=== PATIENT | female | born 1950 | race Two or more races ===

== ENCOUNTER 2024-04-26 15:02 | Emergency (ER) | payer OTHER ==
[~2024-04-26] VITALS: Ht 165.1 cm; Wt 79.8 kg
--- NOTE | 2024-04-26 16:21 | ED.PDOC ---
History of Present Illness HPI Comments 73Y F with PMHx cholecystectomy and cancer presents to ED for chief complaint jaundice x7days with mild abd pain. Pt denies fever, n/v/d. Pt states she had lap kristin done in August or September of 2023 and was then told she had cancer. Pt was then referred to [facility] for f/u procedure to "clean the margins" in 2023. Pt has not received further treatment. Pt had f/u appt with [facility] on but provider did not notice the jaundice. For the last 10 days, pt has been experiencing nausea, brown urine, light jose angel colored feces, and excessive belching. No known allergies. 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 Family History Family History: Unknown Social History Smoker: Unknown Alcohol: Unknown Drugs: Unknown Lives In: Home Constitutional: denies: chills, diaphoresis, fatigue, fever, malaise, sweats, weakness, others EENTM: denies: blurred vision, double vision, ear bleeding, ear discharge, ear drainage, ear pain, ear ringing, eye pain, eye redness, hearing loss, mouth pain, mouth swelling, nasal discharge, nose bleeding, nose congestion, nose pain, photophobia, tearing, throat pain, throat swelling, voice changes, others Respiratory: denies: cough, hemoptysis, orthopnea, SOB at rest, shortness of breath, SOB with excertion, stridor, wheezing, others Cardiovascular: denies: chest pain, dizzy spells, diaphoresis, Dyspnea on exertion, edema, irregular heart beat, left arm pain, lightheadedness, palpitations, PND, syncope, others Gastrointestinal: reports: abdominal pain (mild); denies: abdomen distended, blood streaked bowels, constipated, diarrhea, dysphagia, difficulty swallowing, hematemesis, melena, nausea, poor appetite, poor fluid intake, rectal bleeding, rectal pain, vomiting, others Genitourinary: denies: abnormal vagina bleeding, burning, dyspareunia, dysuria, flank pain, frequency, hematuria, incontinence, pain, , vagina discharge, urgency, others Neurological: denies: dizziness, fainting, headache, left sided numbness, left sided weakness, numbness, paresthesia, pre-existing deficit, right sided numbness, right sided weakness, seizure, speech problems, tingling, tremors, weakness, others Musculoskeletal: denies: back pain, gout, joint pain, joint swelling, muscle pain, muscle stiffness, neck pain, others Integumetry: reports: change in color (jaundice); denies: bruises, change in hair/nails, dryness, laceration, lesions, lumps, rash, wounds, others Allergic/Immunocompromised: denies: Difficulty Healing, Frequent Infections, Hives, Itching, others Hematologic/Lymphatic: denies: anemia, blood clots, easy bleeding, easy bruising, swollen glands, others Endocrine: denies: excessive hunger, excessive sweating, excessive thirst, excessive urination, flushing, intolerance to cold, intolerance to heat, unexplained weight gain, unexplained weight loss, others Psychiatric: denies: anxiety, bipolar disorder, depression, hopeless, panic disorder, schizophrenia, sleepless, suicidal, others All Other Systems: Reviewed and Negative Physical Exam General Appearance: No Apparent Distress, Normal HEENT: Pharynx Normal, Scleral Icterus (L), Scleral Icterus (R), TMs Normal Neck: Full Range of Motion, Non-Tender, Normal, Normal Inspection Respiratory: Chest Non-Tender, Lungs Clear, No Accessory Muscle Use, No Respiratory Distress, Normal Breath Sounds Cardiovascular: No Edema, No JVD, No Murmur, No Gallop, Normal Peripheral Pulses, Regular Rate/Rhythm Breast Exam: Deferred Gastrointestinal: No Organomegaly, Non Tender, No Pulsatile Mass, Normal Bowel Sounds, Soft Genitalia: Deferred Pelvic: Deferred Rectal: Deferred Extremities: No calf tenderness, Normal capillary refill, Normal inspection, No rmal range of motion, Non-tender, No pedal edema Musculoskeletal : Apperance: Normal Neurologic: Alert, 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 Was a procedure done?: No Differential Dx Considerations may include: bile duct obstruction, pancreatic carcinoma, liver failure X-Ray, Labs, Meds, VS Vital Signs Date Time Temp Pulse Resp B/P (MAP) Pulse Ox O2 Delivery O2 Flow Rate FiO2 04/26/24 15:26 97.9 83 16 149/70 (96) 97 04/26/24 15:26 77 Lab Test 04/26/24 16:44 04/26/24 16:05 04/26/24 15:16 Range/Units Troponin I High Sensitivity 3 L 3 L </=34 ng/L White Blood Count 8.3 4.4-10.8 10^3/uL Red Blood Count 4.18 4.0-5.20 10^6/uL Hemoglobin 13.1 12.2-16.2 g/dL Hematocrit 38.4 36.0-46.0 % Mean Corpuscular Volume 92.0 80.0-100.0 fL Mean Corpuscular Hemoglobin 31.3 28.0-32.0 pg Mean Corpuscular Hemoglobin Concent 34.0 32.0-36.0 g/dL Red Cell Distribution Width 15.4 H 11.8-14.3 % Platelet Count 357 140-450 10^3/uL Mean Platelet Volume 8.9 6.9-10.8 fL Neutrophils (%) (Auto) 69.4 37.0-80.0 % Lymphocytes (%) (Auto) 20.2 10.0-50.0 % Monocytes (%) (Auto) 8.3 0.0-12.0 % Eosinophils (%) (Auto) 1.3 0.0-7.0 % Basophils (%) (Auto) 0.8 0.0-2.0 % Neutrophils # (Auto) 5.7 1.6-8.6 10 ^3/uL Lymphocytes # (Auto) 1.7 0.4-5.4 10 ^3/uL Monocytes # (Auto) 0.7 0-1.3 10 ^3/uL Eosinophils # (Auto) 0.1 0-0.8 10 ^3/uL Basophils # (Auto) 0.1 0-0.2 10 ^3/uL Nucleated Red Blood Cells 0.1 % Sodium Level 133 L 136-145 mmol/L Potassium Level 3.5 3.5-5.1 mmol/L Chloride Level 103 98-107 mmol/L Carbon Dioxide Level 23 20-31 mmol/L Anion Gap 7 5-15 Blood Urea Nitrogen 12 9-23 mg/dL Creatinine 1.07 H 0.550-1.02 mg/dL Glomerular Filtration Rate Calc 55 >90 mL/min BUN/Creatinine Ratio 11.2 10.0-20.0 Serum Glucose 317 H 74-106 mg/dL Calcium Level 9.8 8.7-10.4 mg/dL Total Bilirubin 16.4 H 0.2-1.0 mg/dL Aspartate Amino Transferase (AST) 299 H 13-40 U/L Alanine Aminotransferase (ALT) 438 H 7-40 U/L Alkaline Phosphatase 911 H 46-116 U/L Total Protein 7.5 5.7-8.2 g/dL Albumin 4.2 3.2-4.8 g/dL POC Glucose 322 H 70-106 mg/dl [place] [id number] Ph: [phone] DIAGNOSTIC IMAGING Diagnostic Imaging Report : [id number] Signed PATIENT: PEGGY SILVERACCT: [id number] UNIT: [id number] : 1950 LOC: ER ROOM / BED: / AGE / SEX: 73 / F ADM STATUS: REG ER SERVICE 1550 ORDERING PHYSICIAN: JOSE CARLOS WAHL MD PROCEDURE(s): CXR2 - CHEST TWO VIEWS ROUTINE REASON: RO PNA ORDER NUMBER(s): [id number], ACCESSION NUMBER(s): [id number] CHEST TWO VIEWS ROUTINE CLINICAL HISTORY: RO PNA COMPARISON: None TECHNIQUE: Frontal and lateral view of the chest was obtained FINDINGS: Lines and Tubes: None Lungs: No focal consolidation. Pleura: No effusion. No pneumothorax. Cardiomediastinal contours: Unremarkable Bones: No acute osseous abnormality. IMPRESSION: 1. No acute cardiopulmonary disease. ATED BY: PERCY COSTELLO MD DICTATED DATE/TIME: 04/26/241616 SIGNED BY: PERCY COSTELLO MD SIGNED DATE/TIME: 04/26/241616 CC: 73-year-old female presents here with jaundice. She states she has noticed this for the last 6-10 days. 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 She states she was doing fine until recently which noted pale colored stools and increased jaundice. Blood work has been done today which demonstrates a bilirubin of 16. Gallbladder ultrasound has been ordered as well as a CT abdomen pelvis with IV contrast. Results are still pending. Patient care has been transferred to Dr. Wade Time of 1ST Reevaluation: 16:34 Reevaluation 1ST: Unchanged Patient Education/Counseling: Diagnosis, Treatment Family Education/Counseling: No Family Present Departure 1 Departure Time of Disposition: 18:00 Impression: Primary Impression: Hyperbilirubinemia Disposition: 30 STILL A PATIENT Condition: Guarded Critical Care Note Critical Care Time?: No Stability Stability form required: No Heart Score Heart Score: Heart Score Response (Comments) Value History N/A 0 EKG N/A 0 Age N/A 0 Risk Factors N/A 0 Troponin N/A 0 Total 0 I personally scribed for JOSE CARLOS WAHL MD ([email or web address]) on 04/26/24 at 16:21. Electronically submitted by Kaylie Guevara ([employer]). I personally scribed for JOSE CARLOS WAHL MD ([email or web address]) on 04/26/24 at 16:42. Electronically submitted by Kaylie Guevara ([employer]). JOSE CARLOS WALH MD Apr 26, 2024 16:21
[2024-04-26 16:27] LABS: Basophils # (auto) 0.1 10 ^3/uL (0-0.2); Basophils % (auto) 0.8 % (0.0-2.0); Eosinophils # (auto) 0.1 10 ^3/uL (0-0.8); Eosinophils % (auto) 1.3 % (0.0-7.0); Hematocrit 38.4 % (36.0-46.0); Hemoglobin 13.1 g/dL (12.2-16.2); Lymphocytes # (auto) 1.7 10 ^3/uL (0.4-5.4); Lymphocytes % (auto) 20.2 % (10.0-50.0); Mean Corpuscular Hemoglobin 31.3 pg (28.0-32.0); Monocytes # (auto) 0.7 10 ^3/uL (0-1.3); Monocytes % (auto) 8.3 % (0.0-12.0); Neutrophils # (auto) 5.7 10 ^3/uL (1.6-8.6); Neutrophils % (auto) 69.4 % (37.0-80.0); Nucleated Red Blood Cells % 0.1 %; Platelet Count (auto) 357 10^3/uL (140-450); Red Blood Cells 4.18 10^6/uL (4.0-5.20); Red Cell Distribution Width 15.4 % (11.8-14.3); White Blood Cell 8.3 10^3/uL (4.4-10.8)
[2024-04-26 16:45] LABS: Alanine Aminotransferase 438 U/L (7-40); Albumin 4.2 g/dL (3.2-4.8); Alkaline Phosphatase 911 U/L (46-116); Anion Gap 7 (5-15); Aspartate Aminotransferase 299 U/L (13-40); Bilirubin, Total 16.4 mg/dL (0.2-1.0); Blood Urea Nitrogen 12 mg/dL (9-23); Calcium 9.8 mg/dL (8.7-10.4); Carbon Dioxide 23 mmol/L (20-31); Chloride 103 mmol/L (98-107); Glucose 317 mg/dL (74-106); Potassium 3.5 mmol/L (3.5-5.1); Sodium 133 mmol/L (136-145)
[2024-04-26 16:46] LABS: Total Protein 7.5 g/dL (5.7-8.2)
[2024-04-26 16:48] LABS: BUN/Creatinine Ratio 11.2 (10.0-20.0)
--- NOTE | 2024-04-26 16:58 | ECG ---
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
--- NOTE | 2024-04-26 16:58 | ECG ---
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
[2024-04-26] MEDS: IOHEXOL 300 MG/ML 100ML BOTTLE IJ ONE (18:00)
--- NOTE | 2024-04-26 18:34 | DVH ---
INDICATION: Pain. TECHNIQUE: Multiple real-time sonographic images of the abdomen were obtained. COMPARISON: None FINDINGS: The liver is homogenous in echogenicity. The liver measures 13.68 cm. No intrahepatic bili erlin ductal dilatation is noted. Gallbladder is been surgically removed. The common duct measures 17.15 cm and is unremarkable. No p ericholecystic fluid is noted. There appears to be a fluid collection with calcifications in the renee ins and internal debris. Questionable residual portion of the gallbladder. Patient is status post cho lecystectomy and has a history of gallbladder cancer. There are no prior studies for comparison. Nega tive ultrasound Matt's sign is elicited. The right kidney measures 7.51 cm. No hydronephrosis. The pancreas is not well visualized due to obscuration from bowel gas. IMPRESSION: 1. Gallbladder is been surgically removed. 2. In the gallbladder fossa is a collection of fluid with calcified margins and internal debris. This may represent residual portion of the gallbladder. The patient is status post cholecystectomy with a history of gallbladder cancer. Negative ultrasound Matt's sign is elicited. 3. 3 cm anechoic lesion lower pole right kidney most likely a cyst. 4. Common bile duct measures 17.15 mm. HS:Y
--- NOTE | 2024-04-26 19:35 | DVH ---
Exam: CT CT AB PEL WITH IV CON ONLY History: ELEVATED BILIRUBIN Comparison Study: None available at time of dictation. TECHNIQUE: Multidetector CT of the abdomen was performed from lung bases to pubic symphysis. Imaging was performed without IV contrast. Axial, coronal and sagittal multiplanar reformats were obtained fr om the axial data set by the technologist. Radiation Dose Information: CT Dose: CTDI volume is 13.28 mGy. Dose-length product is 700.95 mGy*cm Omnipaque 300: 100 mL FINDINGS: Lung Bases: No acute or significant lung base finding. Normal heart size. No pleural or pericardial effusion. Liver: The liver is normal in size. No focal lesions. Gallbladder and Biliary Tree: Surgical clips in the gallbladder fossa. 3.2 by 2.6 cm fluid collection in the gallbladder fossa with the same tissue density as the common bile duct is may represent a aleida iary leak into the gallbladder fossa. There is some mildly dilated intrahepatic ducts. Spleen: Unremarkable Pancreas: The pancreas is grossly normal in appearance. Adrenal Glands: Unremarkable Kidneys: 3.7 cm low-density nonenhancing cortical lesion in the right kidney consistent with a cortic al cyst. Bladder: Grossly unremarkable for degree of distention. Bowel: The stomach is grossly normal in appearance. Small bowel and colon are normal in caliber and d istribution. The appendix is not visualized; however, no secondary findings of acute appendicitis id entified. Ascites: Absent Lymphadenopathy: No mesenteric, retroperitoneal or periportal lymphadenopathy. Abdominal Wall and Mesentery: Unremarkable. Vasculature: The visualized abdominal aorta is normal in size and caliber. Evaluation of abdominal a nd pelvic vessels is limited due to lack of intravenous contrast. Pelvic Organs: Unremarkable Musculoskeletal: No aggressive focal bony lesions, acute fractures or dislocation. Degenerative disc changes at L4-5. Soft tissues: Unremarkable IMPRESSION: 1. 3.2 x 2.6 cm fluid collection in the gallbladder fossa with tissue density 10.51. Fluid in the co mmon bile duct has a tissue density 10.7 HU. Findings suggest biliary leak. There are mildly dilated intrahepatic ducts. 2. 3.423.7 cm low-density lesion in the cortex of the right kidney suggesting a simple cyst. Radiation optimization: All CT scans at this facility use at least one of these dose optimization scottie hniques: automated exposure control mA and/or kV adjustment per patient size (includes targeted exam s where dose is matched to clinical indication) or iterative reconstruction. HS:Y
[2024-04-26 19:47] LABS: Urine Bacteria FEW /hpf (None Seen); Urine Blood TRACE /uL (Negative); Urine Clarity Turbid (Clear); Urine Color Dark-Yellow (Yellow); Urine Protein, UAD TRACE (Negative); Urine Specific Gravity 1.046 (1.001-1.035); Urine Urobilinogen Normal (Negative); Urine WBC 141 /hpf (0 - 5); Urine pH 6.5 (5.0-9.0)
--- NOTE | 2024-04-26 20:33 | DVHINCON2 ---
Date of service: Apr 26, [address] Wade Reason for Consultation Medical Management History of Present Illness This is a 73-year-old female with listed past medical history who presented with complaint of sharp epigastric and right upper quadrant abdominal pain as well as yellowish discoloration of the skin for about a week with nausea prompting her to seek medical attention at [facility] Emergency room where she was diagnosed with an abdominal abscess admitted for further evaluation and management. No major events reported overnight. Patient denies complaints of fevers, chills, change in appetite, chest pain, palpitations, cough, shortness of breath, dyspnea on exertion, vomiting, diarrhea, constipation, dysuria, lightheadedness, weakness, paresthesia or other complaints. Last bowel movement was yesterday, brown, soft, no melena, no hematochezia. Past Medical History Cholecystectomy with postoperative diagnosis of gallbladder cancer status post surgical intervention to clean margins in February,. This was performed at [facility]. Family History Noncontributory Social History Patient denies current smoking, alcohol use or recreational/illicit drug use. Vital Signs Vital Signs Date Time Temp Pulse Resp B/P (MAP) Pulse Ox O2 Delivery O2 Flow Rate FiO2 04/26/24 15:26 97.9 83 16 149/70 (96) 97 Physical Exam Physical Exam: General: This is a 73-year-old female appearing stated age in no acute distress. HEENT: Pupils equal and reactive to light and accommodation. Extraocular muscles intact. Mucous membranes moist. Conjunctivae [place]. Anicteric Sclera. Lungs: Bilateral air entry; no wheezes, rhonchi, rales. Heart: Regular Rate and Rhythm. Normal S1/S2. Abdomen: Bowel Sounds Normoactive, soft, non-tender, non-distended, no cva tenderness. Extremities: No clubbing, cyanosis, edema. No calf tenderness. Pedal pulses 2+. Neurologic: Patient alert, awake and oriented x 3. Cranial nerves II through XII intact. No focal deficits on gross sensorimotor exam. Labs/Diagnostic Data Labs Test 04/26/24 16:44 04/26/24 16:05 04/26/24 15:17 04/26/24 15:16 Range/Units Troponin I High Sensitivity 3 L </=34 ng/L White Blood Count 8.3 4.4-10.8 10^3/uL Red Blood Count 4.18 4.0-5.20 10^6/uL Hemoglobin 13.1 12.2-16.2 g/dL Hematocrit 38.4 36.0-46.0 % Mean Corpuscular Volume 92.0 80.0-100.0 fL Mean Corpuscular Hemoglobin 31.3 28.0-32.0 pg Mean Corpuscular Hemoglobin Concent 34.0 32.0-36.0 g/dL Red Cell Distribution Width 15.4 H 11.8-14.3 % Platelet Count 357 140-450 10^3/uL Mean Platelet Volume 8.9 6.9-10.8 fL Neutrophils (%) (Auto) 69.4 37.0-80.0 % Lymphocytes (%) (Auto) 20.2 10.0-50.0 % Monocytes (%) (Auto) 8.3 0.0-12.0 % Eosinophils (%) (Auto) 1.3 0.0-7.0 % Basophils (%) (Auto) 0.8 0.0-2.0 % Neutrophils # (Auto) 5.7 1.6-8.6 10 ^3/uL Lymphocytes # (Auto) 1.7 0.4-5.4 10 ^3/uL Monocytes # (Auto) 0.7 0-1.3 10 ^3/uL Eosinophils # (Auto) 0.1 0-0.8 10 ^3/uL Basophils # (Auto) 0.1 0-0.2 10 ^3/uL Nucleated Red Blood Cells 0.1 % Sodium Level 133 L 136-145 mmol/L Potassium Level 3.5 3.5-5.1 mmol/L Chloride Level 103 98-107 mmol/L Carbon Dioxide Level 23 20-31 mmol/L Anion Gap 7 5-15 Blood Urea Nitrogen 12 9-23 mg/dL Creatinine 1.07 H 0.550-1.02 mg/dL Glomerular Filtration Rate Calc 55 >90 mL/min BUN/Creatinine Ratio 11.2 10.0-20.0 Serum Glucose 317 H 74-106 mg/dL Calcium Level 9.8 8.7-10.4 mg/dL Total Bilirubin 16.4 H 0.2-1.0 mg/dL Aspartate Amino Transferase (AST) 299 H 13-40 U/L Alanine Aminotransferase (ALT) 438 H 7-40 U/L Alkaline Phosphatase 911 H 46-116 U/L Total Protein 7.5 5.7-8.2 g/dL Albumin 4.2 3.2-4.8 g/dL Urine Color Dark-yellow Yellow Urine Clarity Turbid H Clear Urine pH 6.5 5.0-9.0 Urine Specific [place] 1.046 H 1.001-1.035 Urine Protein Trace H Negative Urine Ketones Negative Negative Urine Blood Trace H Negative /uL Urine Nitrite Negative Negative Urine Bilirubin 2+ H Negative Urine Urobilinogen Normal Negative mg/dL Urine Leukocyte Esterase 3+ Negative /uL Urine RBC 19 0 - 4 /hpf Urine WBC 141 0 - 5 /hpf Urine Squamous Epithelial Cells Mod <5 /hpf Urine Bacteria Few H None Seen /hpf Urine Glucose Trace Normal mg/dL POC Glucose 322 H 70-106 mg/dl Plan/Recommendation This is a 73-year-old female who presented with complaint of abdominal pain and jaundice evaluated to have acute transaminitis with possible obstructive hepatopathy with abscess in the setting of recent gallbladder cancer evaluated at [facility] Emergency room. Patient presents a very complicated scenario with diagnoses that may require immediate intervention including, but not limited to, cholecystostomy tube by Interventional Radiology, surgical intervention by the surgeon was comfortable managing a gallbladder cancer/possible hepatobiliary infiltration, etc.. If you are able to find an appropriate surgeon at this facility that is able to care for the patient and provide timely intervention then I will be happy to coordinate admitting the patient to this hospital. If you are unable to find an appropriate physician/Interventional Radiology that is immediately available to evaluate the patient without delay in care then I would recommend transferring the patient to higher level care to avoid delay in care. Preferably, [facility] would be ideal for continuity of care. Thank you for allowing me to participate in the care of your patient. Please do not hesitate to contact me with any further questions or concerns. Please reconsult as needed. All above discussed with the patient who verbalized agreement and understanding of current status and plan. All questions answered. Patient declined reaching out to any family for update. This medical document was created using an electronic medical record system with [employer] system. Although this document has been carefully reviewed, there may still be some phonetic and typographical errors. These areas are purely typographical due to imperfections of the software programs, and do not reflect any compromise in the patient's medical care Plan discussed with: JALIL PerezEK MD Apr 26, 2024 20:33
[2024-04-27 01:08] VITALS: BP 146/84; PULSE 75; RESP 16; TEMP 97.6; O2SAT 99
== END 2024-04-26 20:45 | disposition short-term general hospital (02) ==
LOC: ER 15:02
DX: R17 Unspecified jaundice (principal)
CPT/HCPCS: 36415; 71046; 74177; 76705; 80053; 81001; 82962; 84484; 85025; 93005; 99285; Q9967

== ENCOUNTER 2024-06-21 09:22 | Inpatient (IN) | payer OTHER ==
[~2024-06-21] VITALS: Ht 162.6 cm; Wt 80.1 kg
--- NOTE | 2024-06-21 09:55 | ED.PDOC ---
GI ASSESSMENT HPI Comments 73 y.o female presents to the ED via EMS for a chief complaint of intermittent upper abdominal pain associated with nausea and vomiting that presented about 5 months ago. Patient was seen at [facility] for this complain when it first presented, had a CT abdominal with contrast done in which showed a mass on her live. Patient has oncology appointment on 07/01/24 but states pain became unbearable and is described as sharp. Patient also complains of new onset of bilateral blurred vision x 2 days. Patient denies any recent eye injuries, trauma, discharge, redness, pain, or blindness. Chief Complaint: Abdominal Pain Time Seen by MD: 09:24 Primary Care Provider: SHIVA Fried Notes: Nurses Notes, Auto Wash Buffer Notes, Medications, Allergies Allergies: Coded Allergies: NO KNOWN ALLERGIES (Unverified , 06/21/24) Information Source: Patient, Emergency Med Personnel Mode of Arrival: EMS Timing: Months (5) Duration: Intermittent Quality: Sharp Vomitus: Soft Stool: Normal Severity: Moderate Recent: None Recent Hx of: None Pain Location: Diffuse, Epigastric Modifying Factors: Nothing Associated sign and symptoms: Nausea, Vomiting, Abdominal Pain Past Medical History PAST MEDICAL HISTORY: Cancer Surgical History: Cholecystectomy 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 History: No Pertinent ROTARY DERRICK OPERATOR History Family History Family History: Unknown Social History Smoker: Non-Smoker Alcohol: Denies ETOH Use Drugs: Denies Drug Use Lives In: Home Constitutional: denies: chills, diaphoresis, fatigue, fever, malaise, sweats, weakness, others EENTM: reports: blurred vision; denies: double vision, ear bleeding, ear dis charge, ear drainage, ear pain, ear ringing, eye pain, eye redness, hearing loss, mouth pain, mouth swelling, nasal discharge, nose bleeding, nose congestion, nose pain, photophobia, tearing, throat pain, throat swelling, voice changes, others Respiratory: denies: cough, hemoptysis, orthopnea, SOB at rest, shortness of breath, SOB with excertion, stridor, wheezing, others Cardiovascular: denies: chest pain, dizzy spells, diaphoresis, Dyspnea on exertion, edema, irregular heart beat, left arm pain, lightheadedness, palpitations, PND, syncope, others Gastrointestinal: reports: abdominal pain, nausea, vomiting; denies: abdomen distended, blood streaked bowels, constipated, diarrhea, dysphagia, difficulty swallowing, hematemesis, melena, poor appetite, poor fluid intake, rectal bleeding, rectal pain, others Genitourinary: denies: abnormal vagina bleeding, burning, dyspareunia, dysuria, flank pain, frequency, hematuria, incontinence, pain, , vagina discharge, urgency, others Neurological: denies: dizziness, fainting, headache, left sided numbness, left sided weakness, numbness, paresthesia, pre-existing deficit, right sided numbness, right sided weakness, seizure, speech problems, tingling, tremors, weakness, others Musculoskeletal: denies: back pain, gout, joint pain, joint swelling, muscle pain, muscle stiffness, neck pain, others Integumetry: denies: bruises, change in color, change in hair/nails, dryness, laceration, lesions, lumps, rash, wounds, others Allergic/Immunocompromised: denies: Difficulty Healing, Frequent Infections, Hives, Itching, others Hematologic/Lymphatic: denies: anemia, blood clots, easy bleeding, easy br uising, swollen glands, others Endocrine: denies: excessive hunger, excessive sweating, excessive thirst, excessive urination, flushing, intolerance to cold, intolerance to heat, unexplained weight gain, unexplained weight loss, others Psychiatric: denies: anxiety, bipolar disorder, depression, hopeless, panic disorder, schizophrenia, sleepless, suicidal, others All Other Systems: Reviewed and Negative Physical Exam General Appearance: Moderate Distress HEENT: Normal ENT Inspection, Pharynx Normal, TMs Normal Neck: Full Range of Motion, Non-Tender, Normal, Normal Inspection Respiratory: Chest Non-Tender, Lungs Clear, No Accessory Muscle Use, No Respiratory Distress, Normal Breath Sounds Cardiovascular: No Edema, No JVD, No Murmur, No Gallop, Normal Peripheral Pulses, Regular Rate/Rhythm Breast Exam: Deferred Gastrointestinal: No Organomegaly, Non Tender, No Pulsatile Mass, Normal Bowel Sounds, Soft Genitalia: Deferred Pelvic: Deferred Rectal: Deferred Extremities: No calf tenderness, Normal capillary refill, Normal inspection, Normal range of motion, Non-tender, No pedal edema Musculoskeletal : Apperance: Normal Neurologic: Alert, canal lock tender chief operator II-XII nml as Tested, No Motor Deficits, Normal Affect, Normal Mood, No Sensory Deficits Cerebellar Function: NOT DONE Reflexes: NOT DONE Skin: Dry, Normal Color, Warm Peripheral Pulses: 3+ Radial (R), 3+ Radial (L) Lymphatic: No Adenopathy Was a procedure done? Was a procedure done?: No GI differential Dx Differential Diagnosis: Constipation, Diverticular disease, Esophagitis, Gastritis/PUD, Gastroenteritis, Inflammatory BD, Trauma intraabdominal, Esophageal Varicies X-Ray, Labs, Meds, VS Vital Signs Date Time Temp Pulse Resp B/P (MAP) Pulse Ox O2 Delivery O2 Flow Rate FiO2 06/21/24 10:36 166/70 06/21/24 10:35 75 18 166/70 06/21/24 10:21 85 16 96 Room Air* 0 21 06/21/24 09:44 97.7 75 18 166/70 (102) 98 97.7 06/21/24 09:30 97.8 77 16 161/78 (105) 97 Lab Test 06/21/24 09:46 Range/Units White Blood Count 12.6 H 4.4-10.8 10^3/uL Red Blood Count 4.78 4.0-5.20 10^6/uL Hemoglobin 14.3 12.2-16.2 g/dL Hematocrit 43.1 36.0-46.0 % Mean Corpuscular Volume 90.1 80.0-100.0 fL Mean Corpuscular Hemoglobin 29.9 28.0-32.0 pg Mean Corpuscular Hemoglobin Concent 33.2 32.0-36.0 g/dL Red Cell Distribution Width 13.9 11.8-14.3 % Platelet Count 258 140-450 10^3/uL Mean Platelet Volume 7.9 6.9-10.8 fL Neutrophils (%) (Auto) 80.9 H 37.0-80.0 % Lymphocytes (%) (Auto) 9.3 L 10.0-50.0 % Monocytes (%) (Auto) 8.5 0.0-12.0 % Eosinophils (%) (Auto) 0.7 0.0-7.0 % Basophils (%) (Auto) 0.6 0.0-2.0 % Neutrophils # (Auto) 10.2 H 1.6-8.6 10 ^3/uL Lymphocytes # (Auto) 1.2 0.4-5.4 10 ^3/uL Monocytes # (Auto) 1.1 0-1.3 10 ^3/uL Eosinophils # (Auto) 0.1 0-0.8 10 ^3/uL Basophils # (Auto) 0.1 0-0.2 10 ^3/uL Nucleated Red Blood Cells 0.2 % Sodium Level 136 136-145 mmol/L Potassium Level 4.0 3.5-5.1 mmol/L Chloride Level 99 98-107 mmol/L Carbon Dioxide Level 29 20-31 mmol/L Anion Gap 8 5-15 Blood Urea Nitrogen 7 L 9-23 mg/dL Creatinine 0.95 0.550-1.02 mg/dL Glomerular Filtration Rate Calc 63 >90 mL/min BUN/Creatinine Ratio 7.4 L 10.0-20.0 Serum Glucose 150 H 74-106 mg/dL Calcium Level 10.2 8.7-10.4 mg/dL Current Medications Medications (Trade) Dose Ordered Sig/Varsha Route Start Time Stop Time Status Last Admin Sodium Chloride 1,000 ml @ 1,000 mls/hr Q1H ONCE IV 06/21/24 09:45 06/21/24 10:44 DC 06/21/24 10:36 Ondansetron HCl (Zofran) 4 mg ONCE ONCE IV 06/21/24 09:45 06/21/24 09:46 DC 06/21/24 10:35 Morphine Sulfate 2 mg ONCE ONCE IV 06/21/24 10:15 06/21/24 10:16 DC 06/21/24 10:35 Amlodipine Besylate (Norvasc Tablet) 10 mg ONCE ONCE PO 06/21/24 10:15 06/21/24 10:16 DC 06/21/24 10:36 Patient alert. Complaining of abdominal discomfort. Vitals stable. Answering all questions. Able to see. Possibly presbycusis. Blood sugar elevated. WBC elevated. Establish intravenous access. Was given fluids. Blood pressure was controlled with Norvasc. Was given morphine for pain. History of cancer. Patient does not want any CT scans. Abdomen is soft diffusely tender. Reviewed her history. Explained to the patient. Time of 1ST Reevaluation: 09:51 Reevaluation 1ST: Unchanged Patient Education/Counseling: Diagnosis, Treatment, Prognosis Family Education/Counseling: No Family Present Additional Information I reviewed the following notes from patient's past medical encounters: 02/20/24- Generalized weakness The following tests were ordered, and results were reviewed by me: CBC, CMP and UA Additional Information was gathered from interviewing the following independent historians: Paramedics I reviewed and agreed with the following test results read by other providers: CT I discussed treatment and results with medical personnel Departure 1 Departure Time of Disposition: 11:31 Impression: Primary Impression: Acute abdominal pain Additional Impression: Uncontrolled diabetes mellitus Qualified Codes: E13.65 - Other specified diabetes mellitus with hyperglycemia Disposition: ADMITTED INPATIENT Admit to: Med Surg Condition: Guarded Critical Care Note Critical Care Time?: No Stability Stability form required: No I personally scribed for KESHIA ALLEN MD ([email or web address]) on 06/21/24 at 09:55. Electronically submitted by Letty Land ([facility]). KESHIA ALLEN MD Jun 21, 2024 09:55
[2024-06-21 10:16] LABS: Basophils # (auto) 0.1 10 ^3/uL (0-0.2); Basophils % (auto) 0.6 % (0.0-2.0); Eosinophils # (auto) 0.1 10 ^3/uL (0-0.8); Eosinophils % (auto) 0.7 % (0.0-7.0); Hematocrit 43.1 % (36.0-46.0); Hemoglobin 14.3 g/dL (12.2-16.2); Lymphocytes # (auto) 1.2 10 ^3/uL (0.4-5.4); Lymphocytes % (auto) 9.3 % (10.0-50.0); Mean Corpuscular Hemoglobin 29.9 pg (28.0-32.0); Mean Corpuscular Hgb Conc. 33.2 g/dL (32.0-36.0); Mean Corpuscular Volume 90.1 fL (80.0-100.0); Monocytes # (auto) 1.1 10 ^3/uL (0-1.3); Monocytes % (auto) 8.5 % (0.0-12.0); Neutrophils # (auto) 10.2 10 ^3/uL (1.6-8.6); Neutrophils % (auto) 80.9 % (37.0-80.0); Nucleated Red Blood Cells % 0.2 %; Platelet Count (auto) 258 10^3/uL (140-450); Red Blood Cells 4.78 10^6/uL (4.0-5.20); Red Cell Distribution Width 13.9 % (11.8-14.3); White Blood Cell 12.6 10^3/uL (4.4-10.8)
[2024-06-21 10:21] VITALS: PULSE 85; RESP 16; O2SAT 96
[2024-06-21 10:25] LABS: Anion Gap 8 (5-15); Carbon Dioxide 29 mmol/L (20-31); Chloride 99 mmol/L (98-107); Sodium 136 mmol/L (136-145)
[2024-06-21 10:26] LABS: Calcium 10.2 mg/dL (8.7-10.4)
[2024-06-21 10:31] LABS: BUN/Creatinine Ratio 7.4 (10.0-20.0)
[2024-06-21] MEDS: MORPHINE SULFATE INJ 2 MG/ml SYRG IV ONE (10:35)
[2024-06-21] MEDS: ONDANSETRON HCL 4 MG/2 ML VIAL IV ONE (10:35)
[2024-06-21] MEDS: amLODIPine BESYLATE 5 MG TAB PO ONE (10:36)
[2024-06-21] MEDS: SODIUM CHLORIDE 0.9% 1,000 ML IV ONE (10:36)
[2024-06-21 10:57] LABS: Blood Urea Nitrogen 7 mg/dL (9-23); Glucose 150 mg/dL (74-106)
[2024-06-21] MEDS: metroNIDAZOLE 500MG/100ML 100 ML IV ONE (12:20)
[2024-06-21] MEDS: cefTRIAXone 1GM/50ML D5W 50 ML IV ONE (12:20)
[2024-06-21] MEDS: PANTOPRAZOLE 40 MG/10 ML VIAL INJ IV ONE (12:20)
--- NOTE | 2024-06-21 15:38 | DVHHP2 ---
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 Patient reports that the blurred vision occurred 2 days ago and happened suddenly while she was at home in bed. Patient states that she can see images from a far distance however not close in distance. Patient reports that she is able to see darker colored images versus business analyst ecommerce colors. Patient states that she was at [facility] and [facility], received PET scans outpatient and also at [facility] for admissions for the same problem. Daughter reports that the patient had a marginal scrape done at [facility] Marcio Richard and had a stent placed in the bile duct because the patient's mass was compressing against the bile duct and caused the patient jaundice. Patient's daughter states that she was just recently at [facility] for imaging that was done on her abdomen and pelvis. Patient reports that she has an oncologist appointment on July 01, 2024 at [place]. However, due to the increasing amount of pain in her abdomen,she is here for evaluation. Patient also reports that she was constipated and she has not had a bowel movement in 3 days. She also reports that she does not have the appetite to eat. Patient reports that she was diagnosed with pancreatic cancer in September of 2023. Patient denies fever, chills, chest pain, shortness of breath, lightheadedness, dizziness, and headaches. Patient's daughter by wheelchair side and refusing diagnostic imaging. She reports that her mom has received numerous amounts of imaging from the outpatient and at [facility]. Past Medical History Pancreatic cancer Mets to the liver Past Surgical History: Cholecystectomy, Hysterectomy Family History: Cancer, Other (Mom breast cancer) Smoke: No ALCOHOL: none Drugs: None Lives: with Family Domestic Violence: Neg Review of Systems Constitutional: No: Fever, Chills, Sweats, Weakness, Malaise, Other Eyes: Vision change; No: Pain, Conjunctivae inflammation, Eyelid inflammation, Other, Redness ENT: No: Ear pain, Ear discharge, Nose pain, Nose discharge, Nose congestion, Mouth pain, Mouth swelling, Throat pain, Throat swelling, Other Respiratory: No: Cough, Dry, Shortness of breath, SOB with excertion, Wheezing, Hemoptysis, Pleuritic Pain, Sputum, Wheezing, Other Cardiovascular: No: Chest Pain, Palpitations, Orthopnea, Paroxysmal Noc. Dyspnea, Edema, Lt Headedness, Other Gastrointestinal: Nausea, Vomiting, Abdominal Pain, Diarrhea, Constipation; No: Melena, Hematochezia, Other Genitourinary: No Dysuria, No Frequency, No Incontinence, No Hematuria, No Retention, No Other Musculoskeletal: back pain; No: other, neck pain, shoulder pain, arm pain, hand pain, leg pain, foot pain Skin: No: Rash, Lesions, Jaundice, Bruising, Other Neurological: No: Weakness, Numbness, Incoordination, Change in speech, Confusion, Seizures, Other Allergies: Coded Allergies: NO KNOWN ALLERGIES (Unverified , 06/21/24) Medications Current Medications Medications Dose Ordered Sig/Varsha Route Start Time Stop Time Status Last Admin Dose Admin Ceftriaxone Sodium 50 ml @ 100 mls/hr DAILY@09 IV 06/22/24 09:00 UNV Metronidazole 100 ml @ 100 mls/hr Q8HR IV 06/21/24 22:00 UNV Sodium Chloride 1,000 ml @ 60 mls/hr [id number] IV 06/21/24 15:15 UNV Acetaminophen/ Hydrocodone Bitart 1 tab Q4HP PRN PO 06/21/24 15:15 UNV Ondansetron HCl 4 mg Q4HP PRN IV 06/21/24 15:15 UNV Docusate Sodium 100 mg BIDPRN PRN PO 06/21/24 15:15 UNV Enoxaparin Sodium 40 mg DAILY SC 06/22/24 10:00 UNV Acetaminophen 650 mg Q6HP PRN PO 06/21/24 15:15 UNV Morphine Sulfate 2 mg Q4HPRN PRN IV 06/21/24 15:15 UNV Exam Vital Signs Vital Signs Date Time Temp Pulse Resp B/P (MAP) Pulse Ox O2 Delivery O2 Flow Rate FiO2 06/21/24 12:28 84 16 123/74 (90) 96 06/21/24 10:21 Room Air* 0 21 06/21/24 09:44 97.7 97.7 General Appearance: Alert, Oriented X3, Cooperative, No acute distress HEENT: Atraumatic, Mucous membr. moist/pink Respiratory: Clear to auscultation, Normal air movement Cardiovascular: Regular rate, Normal S1, Normal S2, No murmurs Abdominal: Normal bowel sounds, Soft Extremities: No clubbing, No cyanosis, No edema, Normal pulses, No tenderness/swelling Skin: No rashes, No breakdown, No significant lesion Neuro: Normal speech, Strength at 5/5 X4 ext, Normal tone, Sensation intact Psych/Mental Status: Mental status NL, Mood NL Labs/Xrays Labs Test 06/21/24 09:46 Range/Units White Blood Count 12.6 H 4.4-10.8 10^3/uL Red Blood Count 4.78 4.0-5.20 10^6/uL Hemoglobin 14.3 12.2-16.2 g/dL Hematocrit 43.1 36.0-46.0 % Mean Corpuscular Volume 90.1 80.0-100.0 fL Mean Corpuscular Hemoglobin 29.9 28.0-32.0 pg Mean Corpuscular Hemoglobin Concent 33.2 32.0-36.0 g/dL Red Cell Distribution Width 13.9 11.8-14.3 % Platelet Count 258 140-450 10^3/uL Mean Platelet Volume 7.9 6.9-10.8 fL Neutrophils (%) (Auto) 80.9 H 37.0-80.0 % Lymphocytes (%) (Auto) 9.3 L 10.0-50.0 % Monocytes (%) (Auto) 8.5 0.0-12.0 % Eosinophils (%) (Auto) 0.7 0.0-7.0 % Basophils (%) (Auto) 0.6 0.0-2.0 % Neutrophils # (Auto) 10.2 H 1.6-8.6 10 ^3/uL Lymphocytes # (Auto) 1.2 0.4-5.4 10 ^3/uL Monocytes # (Auto) 1.1 0-1.3 10 ^3/uL Eosinophils # (Auto) 0.1 0-0.8 10 ^3/uL Basophils # (Auto) 0.1 0-0.2 10 ^3/uL Nucleated Red Blood Cells 0.2 % Sodium Level 136 136-145 mmol/L Potassium Level 4.0 3.5-5.1 mmol/L Chloride Level 99 98-107 mmol/L Carbon Dioxide Level 29 20-31 mmol/L Anion Gap 8 5-15 Blood Urea Nitrogen 7 L 9-23 mg/dL Creatinine 0.95 0.550-1.02 mg/dL Glomerular Filtration Rate Calc 63 >90 mL/min BUN/Creatinine Ratio 7.4 L 10.0-20.0 Serum Glucose 150 H 74-106 mg/dL Calcium Level 10.2 8.7-10.4 mg/dL Exam: CT CT AB PEL WO CON-NO ORAL OR IV History: abd pain Comparison Study: None available at time of dictation. TECHNIQUE: Multidetector CT of the abdomen was performed from lung bases to pubic symphysis. Imaging was performed without IV contrast. Axial, coronal and sagittal multiplanar reformats were obtained from the axial data set by the technologist. Radiation Dose Information: CT Dose: CTDI volume is 10.69 mGy. Dose-length product is 507.3 mGy*cm FINDINGS: Evaluation of solid organs is limited due to lack of intravenous contrast use. Findings: Lung Bases: No acute or significant lung base finding. Normal heart size. No pleural or pericardial effusion. Liver: The liver is normal in size. No focal lesions. Gallbladder and Biliary Tree: Gallbladder appears to have been removed and there appears to be a biliary stent in. There is a small amount of pneumobilia in the left lobe of the liver. Spleen: Unremarkable Pancreas: There appears to be some stranding in the mesenteric fat around the pancreatic head raising the question of pancreatitis correlate with lab values. Adrenal Glands: Unremarkable Kidneys: Kidneys are grossly normal without calculi or hydronephrosis. There is a 3.6 cm hypodense cortical lesion right kidney most likely renal cyst. Bladder: Grossly unremarkable for degree of distention. Bowel: The stomach is grossly normal in appearance. Small bowel and colon are normal in caliber and distribution. The appendix is not visualized; however, no secondary findings of acute appendicitis identified. Ascites: Absent Lymphadenopathy: No mesenteric, retroperitoneal or periportal lymphadenopathy. Abdominal Wall and Mesentery: Unremarkable. Vasculature: The visualized abdominal aorta is normal in size and caliber. Evaluation of abdominal and pelvic vessels is limited due to lack of intravenous contrast. Pelvic Organs: Unremarkable Musculoskeletal: No aggressive focal bony lesions, acute fractures or dislocation. Soft tissues: Unremarkable IMPRESSION: 1. Gallbladder appears to be surgically removed. 2. Biliary stent is in place. 3. There is a small amount of air in the left lobe of the liver. 4. There is some mild stranding around the head of the pancreas correlate with lab values would suggest pancreatitis. 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 for her who has dementia at home Hyperglycemia A1c ISS and Accu-Cheks FEN/PPX diet IVf DVT prophylaxis not indicated patient ambulating PUD prophylaxis not indicated no history of GERD or GI bleed Admit to med surg Patient states she doesn't take any home medications Discussed plan of care with patient, daughter and nurse Plan discussed with: Patient My Orders Orders - FELICE SHANKS TOLL TICKET CLERK Procedure Category Date Status Time * Hematology/Oncology CONS 06/21/24 Transmitted Consult 14:16 Ct Ab Pel Wo Con-No CT 06/21/24 Logged Oral Or Iv 14:16 Ceftriaxone 1gm/50ml PHA 06/22/24 Logged D5w (Rocephin) 09:00 Metronidazole PHA 06/21/24 Logged 500mg/100ml (Flagyl 22:[address] 06/21/24 Logged 15:13 * Opthalmology CONS 06/21/24 Transmitted Consultatiion Admit ADMIT 06/21/24 Transmitted 15:13 Allergies ROSA 06/21/24 In Process 15:13 Code Status CODE 06/21/24 Transmitted 15:13 Sodium Chloride 0.9% PHA 06/21/24 Logged 15:15 Hydrocodone-Acet PHA 06/21/24 Logged 5/325mg Tab ([place] 15:15 Ondansetron Hcl PHA 06/21/24 Logged (Zofran) 15:15 Docusate Sodium PHA 06/21/24 Logged Capsule (Colace 15:15 Enoxaparin Sodium PHA 06/22/24 Logged (Lovenox) 10:00 Complete Blood Count LAB 06/22/24 Verified 04:00 Comprehensive LAB 06/22/24 Verified Metabolic Panel 04:00 Cardiac DIET 06/21/24 Transmitted Diet-2gna,Lofat,Lochol Dinner Acetaminophen Tablet PHA 06/21/24 Logged (Tylenol Tablet) 15:15 Morphine Sulfate PHA 06/21/24 Logged Injection 15:15 Date of Service: Jun 21, 2024 Billing Provider: FELICE SHANKS Common Visit Codes: [id number] INP/OBS CARE (HIGH) FELICE SHANKS Jun 21, 2024 15:38
--- NOTE | 2024-06-21 15:50 | DVH ---
Exam: CT CT AB PEL WO CON-NO ORAL OR IV History: abd pain Comparison Study: None available at time of dictation. TECHNIQUE: Multidetector CT of the abdomen was performed from lung bases to pubic symphysis. Imaging was performed without IV contrast. Axial, coronal and sagittal multiplanar reformats were obtained fr om the axial data set by the technologist. Radiation Dose Information: CT Dose: CTDI volume is 10.69 mGy. Dose-length product is 507.3 mGy*cm FINDINGS: Evaluation of solid organs is limited due to lack of intravenous contrast use. Findings: Lung Bases: No acute or significant lung base finding. Normal heart size. No pleural or pericardial effusion. Liver: The liver is normal in size. No focal lesions. Gallbladder and Biliary Tree: Gallbladder appears to have been removed and there appears to be a bili erlin stent in. There is a small amount of pneumobilia in the left lobe of the liver. Spleen: Unremarkable Pancreas: There appears to be some stranding in the mesenteric fat around the pancreatic head raising the question of pancreatitis correlate with lab values. Adrenal Glands: Unremarkable Kidneys: Kidneys are grossly normal without calculi or hydronephrosis. There is a 3.6 cm hypodense co rtical lesion right kidney most likely renal cyst. Bladder: Grossly unremarkable for degree of distention. Bowel: The stomach is grossly normal in appearance. Small bowel and colon are normal in caliber and d istribution. The appendix is not visualized; however, no secondary findings of acute appendicitis id entified. Ascites: Absent Lymphadenopathy: No mesenteric, retroperitoneal or periportal lymphadenopathy. Abdominal Wall and Mesentery: Unremarkable. Vasculature: The visualized abdominal aorta is normal in size and caliber. Evaluation of abdominal a nd pelvic vessels is limited due to lack of intravenous contrast. Pelvic Organs: Unremarkable Musculoskeletal: No aggressive focal bony lesions, acute fractures or dislocation. Soft tissues: Unremarkable IMPRESSION: 1. Gallbladder appears to be surgically removed. 2. Biliary stent is in place. 3. There is a small amount of air in the left lobe of the liver. 4. There is some mild stranding around the head of the pancreas correlate with lab values would sugge st pancreatitis. Radiation optimization: All CT scans at this facility use at least one of these dose optimization scottie hniques: automated exposure control mA and/or kV adjustment per patient size (includes targeted exam s where dose is matched to clinical indication) or iterative reconstruction. HS:Y
--- NOTE | 2024-06-21 17:08 | DVH ---
EXAM: CT HEAD WITHOUT CONTRAST INDICATION: blurred vision TECHNIQUE: CT of the head without intravenous contrast. Radiation Dose Information: CT Dose: CTDI volume is 51.4 mGy. Dose-length product is 824.06 mGy*cm The dose indicators for CT are the volume Computed Tomography (CT) Dose Index (CTDIvol) and the Dose Length Product (DLP), and are measured in units of mGy and mGy-cm, respectively. These indicators are not patient dose, but values generated from the CT scanner acquisition factors. The report includes radiation exposure data for exposures received during this examination. COMPARISON: None FINDINGS: There is no evidence of acute intracranial hemorrhage, extra-axial collection, mass effect, midline s hift, herniation or hydrocephalus. Area of encephalomalacia right cerebellar hemisphere consistent with old infarct. No findings of acut e intracranial hemorrhage. Multiple smaller areas of encephalomalacia in the right and left cerebella r hemispheres. Area of decreased attenuation in the left parietal occipital consistent with a area of infarction age indeterminate. The ventricles, sulci and cisterns are age appropriate. The sidhu-white differentiation is intact. Patchy periventricular and subcortical white matter hypoattenuation is nonspecific but may be related to small vessel ischemic disease. The visualized paranasal sinuses and mastoid air cells are clear. The surrounding soft tissues and osseous structures are unremarkable. IMPRESSION: 1. 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 2. Area of decreased attenuation of the left posterior parietal occipital lobe consistent with areas of old infarct. HS:Y
[2024-06-21 18:20] LABS: Urine Bacteria FEW /hpf (None Seen); Urine Blood TRACE /uL (Negative); Urine Clarity Turbid (Clear); Urine Color Yellow (Yellow); Urine Hyaline Cast FEW /lpf (0 - 2); Urine Mucus FEW (None Seen); Urine Protein, UAD 1+ (Negative); Urine Squamous Epithelial Cell FEW /hpf (<5); Urine Urobilinogen 2 mg/dL (Negative); Urine WBC 26 /hpf (0 - 5)
[2024-06-21] MEDS: SODIUM CHLORIDE 0.9% 1,000 ML IV SCH (19:22)
[2024-06-21] MEDS: ONDANSETRON HCL 4 MG/2 ML VIAL IV PRN (20:34)
[2024-06-21] MEDS: MORPHINE SULFATE INJ 2 MG/ml SYRG IV PRN (20:35)
[2024-06-21] MEDS ORDERED: OMEP20TA PO (21:05)
[2024-06-21] MEDS ORDERED: SERT-206 PO (21:05)
[2024-06-21 22:03] VITALS: PULSE 96; RESP 17; O2SAT 98
[2024-06-21] MEDS: HYDROcodone-ACET 5/325MG TAB PO PRN (22:43)
[2024-06-21] MEDS: metroNIDAZOLE 500MG/100ML 100 ML IV SCH (22:43)
[2024-06-21] MEDS: DOCUSATE SOD 100 MG CAP PO PRN (22:44)
[2024-06-22] VITALS (7 sets, daily range): BP systolic 136–188; BP diastolic 57–88; PULSE 79–95; RESP 18–20; TEMP 97.9–98.8; O2SAT 88–98
[2024-06-22] MEDS: cefTRIAXone 1GM/50ML D5W 50 ML IV SCH (08:51)
[2024-06-22] MEDS: ENOXAPARIN SOD 40 MG/0.4 ML SYRINGE SC SCH (08:53)
[2024-06-22 10:39] LABS: Basophils # (auto) 0 10 ^3/uL (0-0.2); Basophils % (auto) 0.6 % (0.0-2.0); Eosinophils # (auto) 0.2 10 ^3/uL (0-0.8); Eosinophils % (auto) 2.3 % (0.0-7.0); Hematocrit 37.5 % (36.0-46.0); Hemoglobin 12.5 g/dL (12.2-16.2); Lymphocytes # (auto) 0.9 10 ^3/uL (0.4-5.4); Lymphocytes % (auto) 10.3 % (10.0-50.0); Mean Corpuscular Hgb Conc. 33.3 g/dL (32.0-36.0); Mean Corpuscular Volume 90.2 fL (80.0-100.0); Monocytes % (auto) 11.1 % (0.0-12.0); Neutrophils # (auto) 6.5 10 ^3/uL (1.6-8.6); Neutrophils % (auto) 75.7 % (37.0-80.0); Nucleated Red Blood Cells % 0.1 %; Platelet Count (auto) 192 10^3/uL (140-450); Red Blood Cells 4.16 10^6/uL (4.0-5.20); Red Cell Distribution Width 13.8 % (11.8-14.3); White Blood Cell 8.6 10^3/uL (4.4-10.8)
--- NOTE | 2024-06-22 10:50 | DVHINCON2 ---
Date of service: Jun 22, 2024 Referring Physician merry Horton Reason for Consultation Pancreatic/gallbladder cancer History of Present Illness 73 years old female who has a history of 1. Moderately differentiated Adenocarcinoma of the gallbladder, pT2B after final pathology. 10/11/23: Laparoscopic cholecystectomy and patient was found to have G2 moderately differentiated invading the muscular layer, 1.5 cm tumor, found incidentally on the pathology. PNI present. No LVI, margins clear. Dysplasia/adenoma, cholelithiasis, chronic cholecystitis and intestinal metaplasia present. 12/25/23: PET CT. post cholecystectomy. there is metabolic activity within the liver adjacent to the gallbladder fossa. no other evidence of metastatic disease.mild asymmetric metabolic activity within the right tonsil compared to the left. mild sclerosis involving the left symphysis pubis. Low grade metabolic activity is present to this. 01/02/24: MRI pelvis/abdomen. no evidence of mass or abnormal enhancement adjacent to the gallbladder fossa. Stable indeterminate sclerotic lesion at the left symphysis pubis. Metastatic disease cannot be excluded. There is a low signal sclerotic lesion at the left symphysis pubis measuring 2.6 x 1.6 cm. 03/10/24: Surgical procedure at [facility] by Dr. Duke. Wedge resection. Gallbladder fossa excision: liver and fibroadipose tissue with exuberant Multinucleated giant cell reaction,non necrotizing granulomatous i nflammation and fat necrosis. negative for malignancy. Portal lymph node excision. lymph node with non necrotizing granulomatous lymphadenitis. Negative for malignancy. Negative for infectious organisms. 04/27/2024 the patient had obstructive jaundice and had a CT of the abdomen pelvis which showed small hypoenhancing mass within the pancreatic head with associated substantial biliary tract dilatation and a mild degree of upstream pancreatic duct dilatation, features suggestive of pancreatic adenocarcinoma but metastatic disease could not be ruled out 04/28/2024 the patient had EUS and a biopsy of the pancreatic head mass showing poorly differentiated adenocarcinoma not clear but there is a primary pancreatic tumor or metastatic gallbladder carcinoma. 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 No fevers night sweats. No bruising or bleeding. She has UTI and is being treated Past Medical History Gallbladder cancer Sleeping problems Ulcer surgery in 1976 Hysterectomy in 2010 Family History: Patient reports no known family medical history. Family History Mother had breast cancer at the age of 80 Sister had colon cancer Social History No smoking or drinking or illicit drugs. She is has a who has dementia. Patient has two children Allergies: Coded Allergies: NO KNOWN ALLERGIES (Unverified , 06/21/24) Home Meds Reported Medications Omeprazole (Gnp Omeprazole) 20 Mg Tab, 1 TAB PO DAILY, #90 TAB 1 Refill 06/21/24 Sertraline Hcl (Sertraline Hcl) 50 Mg Tab, 1 TAB PO DAILY, #30 TAB 5 Refills 06/21/24 Current Medications Current Medications Medications (Trade) Dose Ordered Sig/Varsha Route PRN Reason Start Time Stop Time Status Last Admin Ceftriaxone Sodium 50 ml @ 100 mls/hr DAILY@09 IV 06/22/24 09:00 06/22/24 08:51 Metronidazole 100 ml @ 100 mls/hr Q8HR IV 06/21/24 22:00 06/22/24 05:54 Sodium Chloride 1,000 ml @ 60 mls/hr [id number] IV 06/21/24 15:15 06/21/24 22:43 Acetaminophen/ Hydrocodone Bitart ([place] 5/325MG Tab) 1 tab Q4HP PRN PO MODERATE PAIN (4-6 PAIN SCALE) 06/21/24 15:15 06/21/24 22:43 Ondansetron HCl (Zofran) 4 mg Q4HP PRN IV NAUSEA / VOMITING 06/21/24 15:15 06/22/24 09:06 Docusate Sodium (Colace Capsule) 100 mg BIDPRN PRN PO FOR CONSTIPATION 06/21/24 15:15 06/21/24 22:44 Enoxaparin Sodium (Lovenox) 40 mg DAILY SC 06/22/24 10:00 06/22/24 08:53 Acetaminophen (Tylenol Tablet) 650 mg Q6HP PRN PO PAIN SCALE 1-3 OR TEMP>100.4 06/21/24 15:15 Morphine Sulfate 2 mg Q4HPRN PRN IV SEVERE PAIN (7-10 PAIN SCALE) 06/21/24 15:15 06/22/24 08:52 Vital Signs Vital Signs Date Time Temp Pulse Resp B/P (MAP) Pulse Ox O2 Delivery O2 Flow Rate FiO2 06/22/24 08:52 78 14 152/66 06/22/24 05:00 98.2 98 98.2 06/22/24 00:45 Room Air* 0 21 Physical Exam Moderately built and nourished, in no acute distress, alert and oriented. No jaundice Head and neck: Unremarkable for any masses or neck nodes. No conjunctival or mucosal hemorrhage Lungs: Clear Cardiovascular: S1-S2 heard well Abdomen: No organomegaly, . She is tender in the midepigastric area. No ascites. Bowel sounds are present. Extremities: No clubbing edema cyanosis or calf tenderness. Skin: Unremarkable for petechia purpura ecchymosis Lymphadenopathy: None Neurological exam: No focal deficit Labs/Diagnostic Data Labs Test 06/22/24 09:50 06/21/24 17:00 06/21/24 15:42 06/21/24 09:46 Range/Units Urine Color Yellow Yellow Urine Clarity Turbid H Clear Urine pH 6.0 5.0-9.0 Urine Specific [place] 1.020 1.001-1.035 Urine Protein 1+ H Negative Urine Ketones 1+ H Negative Urine Blood Trace H Negative /uL Urine Nitrite Negative Negative Urine Bilirubin Negative Negative Urine Urobilinogen 2 H Negative mg/dL Urine Leukocyte Esterase 3+ Negative /uL Urine RBC 6 0 - 4 /hpf Urine WBC 26 0 - 5 /hpf Urine Squamous Epithelial Cells Few <5 /hpf Urine Bacteria Few H None Seen /hpf Urine Hyaline Casts Few 0 - 2 /lpf Urine Mucus Few None Seen Urine Glucose Normal Normal mg/dL Lactic Acid Level 1.2 0.4-2.0 mmol/L Lipase 26 12-53 U/L Eosinophils (%) (Auto) 0.7 0.0-7.0 % Eosinophils # (Auto) 0.1 0-0.8 10 ^3/uL Basophils # (Auto) 0.1 0-0.2 10 ^3/uL Nucleated Red Blood Cells 0.2 % Assessment 1. Moderately differentiated Adenocarcinoma of the gallbladder, pT2B after final pathology. 10/11/23: Laparoscopic cholecystectomy and patient was found to have G2 moderately differentiated invading the muscular layer, 1.5 cm tumor, found incidentally on the pathology. PNI present. No LVI, margins clear. Dysplasia/adenoma, cholelithiasis, chronic cholecystitis and intestinal metaplasia present. 12/25/23: PET CT. post cholecystectomy. there is metabolic activity within the liver adjacent to the gallbladder fossa. no other evidence of metastatic disease.mild asymmetric metabolic activity within the right tonsil compared to the left. mild sclerosis involving the left symphysis pubis. Low grade metabolic activity is present to this. 01/02/24: MRI pelvis/abdomen. no evidence of mass or abnormal enhancement adjacent to the gallbladder fossa. Stable indeterminate sclerotic lesion at the left symphysis pubis. Metastatic disease cannot be excluded. There is a low signal sclerotic lesion at the left symphysis pubis measuring 2.6 x 1.6 cm. 03/10/24: Surgical procedure at [facility] by Dr. Duke. Wedge resection. Gallbladder fossa excision: liver and fibroadipose tissue with exuberant Multinucleated giant cell reaction,non necrotizing granulomatous inflammation and fat necrosis. negative for malignancy. Portal lymph node excision. lymph node with non necrotizing granulomatous lymphadenitis. Negative for malignancy. Negative for infectious organisms. 04/27/2024 the patient had obstructive jaundice and had a CT of the abdomen pelvis which showed small hypoenhancing mass within the pancreatic head with associated substantial biliary tract dilatation and a mild degree of upstream pancreatic duct dilatation, features suggestive of pancreatic adenocarcinoma but metastatic disease could not be ruled out 04/28/2024 the patient had EUS and a biopsy of the pancreatic head mass showing poorly differentiated adenocarcinoma not clear but there is a primary pancreatic tumor or metastatic gallbladder carcinoma. Patient came in with abdominal pains in the line his nausea and headaches a CT of the brain without contrast did not show any Mets but showed multiple old infarcts, may rule out new infarcts or metastatic disease in the brain . The patient has near blindness in both eyes on this admission CT of the abdomen pelvis done without IV contrast 1. Gallbladder appears to be surgically removed. 2. Biliary stent is in place. 3. There is a small amount of air in the left lobe of the liver. 4. There is some mild stranding around the head of the pancreas correlate with lab values would suggest pancreatitis. She is waiting to go see her oncologist at [facility] ( Alejo Pederson) Plan/Recommendation We will check his CMP LDH CA 19-9 MRI of the brain with and without contrast MRI of the abdomen with and without contrast Port-A-Cath MS Contin 30 mg twice a day Dilaudid 2 mg p.o. q.4 hours p.r.n. for the pain After the patient visits her [facility] oncologist she will come see me as an outpatient Ophthalmology evaluation Plan discussed with: Patient, Daughter, Son LIZZIEGERALDO MD Jun 22, 2024 10:50
[2024-06-22 11:14] LABS: Alanine Aminotransferase 35 U/L (7-40); Albumin 3.5 g/dL (3.2-4.8); Anion Gap 8 (5-15); Blood Urea Nitrogen 10 mg/dL (9-23); Calcium 9.4 mg/dL (8.7-10.4); Carbon Dioxide 27 mmol/L (20-31); Chloride 101 mmol/L (98-107); Sodium 136 mmol/L (136-145)
[2024-06-22 11:15] LABS: Bilirubin, Total 0.7 mg/dL (0.2-1.0); Total Protein 6.1 g/dL (5.7-8.2)
[2024-06-22 11:28] LABS: Alkaline Phosphatase 301 U/L (46-116); Aspartate Aminotransferase 54 U/L (13-40); Glucose 159 mg/dL (74-106); Potassium 3.4 mmol/L (3.5-5.1)
--- NOTE | 2024-06-22 13:36 | DVHPN2 ---
Subjective 06/22 patient continues to have blurry vision which is acute on chronic. On exam noted to have left nasal hemianopia. This appears to be acute. 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 CT abdomen without any acute process, CT head without any intracranial bleed. Reviewed: H&P Changes from previous H/P or p: No Changes General: Per HPI Musculoskeletal: back pain Objective Vitals Vital Signs Date Time Temp Pulse Resp B/P (MAP) Pulse Ox O2 Delivery O2 Flow Rate FiO2 06/22/24 08:52 78 14 152/66 06/22/24 08:10 Room Air* 0 21 06/22/24 05:00 98.2 98 98.2 Intake/Output Intake and Output 06/22/24 07:00 Intake Total 2020 ml Balance 2020 ml Intake Oral 400 ml IV Total 1620 ml # Voids 1 Exam GEN: Healthy appearing, well-developed, NAD. HEENT: NC/AT; MMM. CV: RRR, no m/r/g. LUNGS: CTAB, no w/r/c. ABD: Soft, NT/ND, NBS, no masses or organomegaly. EXT: skin Warm, well perfused. no rashes. No clubbing, cyanosis, or edema. NEURO: Ambulating with no limitations. Left nasal hemianopia, otherwise nonfocal Medications Current Medications Medications Dose Ordered Sig/Varsha Route Start Time Stop Time Status Last Admin Dose Admin Ceftriaxone Sodium 50 ml @ 100 mls/hr DAILY@09 IV 06/22/24 09:00 06/22/24 08:51 100 MLS/HR Metronidazole 100 ml @ 100 mls/hr Q8HR IV 06/21/24 22:00 06/22/24 05:54 100 MLS/HR Sodium Chloride 1,000 ml @ 60 mls/hr [id number] IV 06/21/24 15:15 06/21/24 22:43 60 MLS/HR Ondansetron HCl 4 mg Q4HP PRN IV 06/21/24 15:15 06/22/24 09:06 4 MG Docusate Sodium 100 mg BIDPRN PRN PO 06/21/24 15:15 06/21/24 22:44 100 MG Enoxaparin Sodium 40 mg DAILY SC 06/22/24 10:00 06/22/24 08:53 40 MG Acetaminophen 650 mg Q6HP PRN PO 06/21/24 15:15 Morphine Sulfate 2 mg Q4HPRN PRN IV 06/21/24 15:15 06/22/24 08:52 2 MG Morphine Sulfate 30 mg Q12HR PO 06/22/24 22:00 Hydromorphone HCl 2 mg Q4HP PRN PO 06/22/24 10:45 Laboratory Results Laboratory Tests 06/22/24 09:50 Chemistry Test 06/22/24 09:50 Albumin 3.5 g/dL (3.2-4.8) Calcium Level 9.4 mg/dL (8.7-10.4) Total Protein 6.1 g/dL (5.7-8.2) Lipid panel Test 06/21/24 15:42 Lipase 26 U/L (12-53) LFT Test 06/22/24 09:50 Alanine Aminotransferase (ALT) 35 U/L (7-40) Alkaline Phosphatase 301 U/L (46-116) H Aspartate Amino Transferase (AST) 54 U/L (13-40) H Total Bilirubin 0.7 mg/dL (0.2-1.0) Urinalysis Test 06/21/24 17:00 Urine Color Yellow (Yellow) Urine Clarity Turbid (Clear) H Urine pH 6.0 (5.0-9.0) Urine Specific [place] 1.020 (1.001-1.035) Urine Protein 1+ (Negative) H Urine Ketones 1+ (Negative) H Urine Blood Trace /uL (Negative) H Urine Nitrite Negative (Negative) Urine Bilirubin Negative (Negative) Urine Urobilinogen 2 mg/dL (Negative) H Urine Leukocyte Esterase 3+ /uL (Negative) Urine RBC 6 /hpf (0 - 4) Urine WBC 26 /hpf (0 - 5) Urine Squamous Epithelial Cells Few /hpf (<5) Urine Bacteria Few /hpf (None Seen) H Urine Hyaline Casts Few /lpf (0 - 2) Urine Mucus Few (None Seen) Urine Glucose Normal mg/dL (Normal) Labs and/or images reviewed: Labs reviewed by me, Image(s) reviewed by me Assessment/Plan Assessment/Plan 06/22 patient continues to have blurry vision which is acute on chronic. On exam noted to have left nasal hemianopia. This appears to be acute. 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 CT abdomen without any acute process, CT head without any intracranial bleed. Acute on chronic vision changes Acute blurry vision Visual field deficits left nasal hemianopia. -patient presenting with acute on chronic vision change. She has ongoing blurry vision, 4 days ago she had acute change and is having gait difficulty with this changes. On exam noted to have left nasal hemianopia. -CT abdomen without any acute process, CT head without any intracranial bleed. -pending brain MRI -continue diet, fall precautions Intractable Nausea -likely viral gastroenteritis versus due to vision changes, or possibly from dizziness related to the syndrome. -p.r.n. antiemetics. Clear liquid diet. Slow fluids, monitor symptoms Diet CLD DVT Lovenox subQ GI prophylaxis PPI IV daily Med surge Full code Plan discussed with: Patient Date of Service: Jun 22, 2024 Billing Provider: ABIODUN PÉREZ MD Common Visit Codes: [id number] INP/OBS CARE(HIGH) ABIODUN PÉREZ MD Jun 22, 2024 13:36
[2024-06-22] MEDS: HYDROmorphone HCL 2 MG TAB PO PRN (14:31)
--- NOTE | 2024-06-22 20:36 | DVH ---
EXAM: MRI BRAIN HEAD WO W CONTRAST CLINICAL HISTORY: mets/cva COMPARISON: None CONTRAST: Type of contrast: clariscan Contrast injected: 20 mL Contrast wasted: 0 TECHNIQUE: Multiplanar, multisequence magnetic resonance imaging of the brain was performed after the administra tion of intravenous contrast. Findings/ IMPRESSION: Multiple foci of restricted diffusion bilaterally seen in the peripheral vascular distribution such a s the bilateral cerebellar hemispheres, bilateral occipital lobes, and small areas scattered througho ut the cortex of the bilateral cerebral hemispheres. This distribution of findings are concerning fo r septic emboli. No evidence of hemorrhage, mass effect, or midline shift. No herniation. There is a curvilinear area of enhancement in the left cerebellum which appears to be adjacent to an area of res tricted diffusion. This is less likely metastatic disease and may be due to focal area of hypoperfusi on or vascular malformation. Attention on follow-up is recommended.
[2024-06-22] MEDS: MORPHINE SULF 30 mg ER tab PO SCH (22:00)
[2024-06-23] VITALS (7 sets, daily range): BP systolic 152–185; BP diastolic 64–93; PULSE 83–108; RESP 15–20; TEMP 97.6–98.2; O2SAT 93–99
[2024-06-23 00:32] LABS: Basophils # (auto) 0.1 10 ^3/uL (0-0.2); Basophils % (auto) 0.7 % (0.0-2.0); Eosinophils # (auto) 0.2 10 ^3/uL (0-0.8); Eosinophils % (auto) 2.2 % (0.0-7.0); Hematocrit 37.5 % (36.0-46.0); Hemoglobin 12.7 g/dL (12.2-16.2); Lymphocytes # (auto) 1.4 10 ^3/uL (0.4-5.4); Mean Corpuscular Hemoglobin 30.7 pg (28.0-32.0); Mean Corpuscular Hgb Conc. 33.8 g/dL (32.0-36.0); Mean Corpuscular Volume 90.9 fL (80.0-100.0); Monocytes # (auto) 0.9 10 ^3/uL (0-1.3); Monocytes % (auto) 9.9 % (0.0-12.0); Neutrophils # (auto) 6.8 10 ^3/uL (1.6-8.6); Neutrophils % (auto) 72.2 % (37.0-80.0); Platelet Count (auto) 208 10^3/uL (140-450); Red Blood Cells 4.13 10^6/uL (4.0-5.20); Red Cell Distribution Width 13.9 % (11.8-14.3); White Blood Cell 9.4 10^3/uL (4.4-10.8)
[2024-06-23 00:54] LABS: Alanine Aminotransferase 37 U/L (7-40); Albumin 3.6 g/dL (3.2-4.8); Alkaline Phosphatase 318 U/L (46-116); Anion Gap 7 (5-15); Aspartate Aminotransferase 57 U/L (13-40); Bilirubin, Total 0.6 mg/dL (0.2-1.0); Calcium 9.2 mg/dL (8.7-10.4); Carbon Dioxide 27 mmol/L (20-31); Chloride 102 mmol/L (98-107); Glucose 130 mg/dL (74-106); Potassium 3.8 mmol/L (3.5-5.1); Sodium 136 mmol/L (136-145)
--- NOTE | 2024-06-23 01:12 | DVH ---
EXAM: CT STROKE CTH INDICATION: Stroke rule out TECHNIQUE: CT of the head without intravenous contrast. Radiation Dose : 1. Head: CT Dose: CTDI volume is 58.2 mGy. Dose-length product is 932.87 mGy*cm The dose indicators for CT are the volume Computed Tomography (CT) Dose Index (CTDIvol) and the Dose Length Product (DLP), and are measured in units of mGy and mGy-cm, respectively. These indicators are not patient dose, but values generated from the CT scanner acquisition factors. The report includes radiation exposure data for exposures received during this examination. COMPARISON: CT HEAD WITHOUT CONTRAST on DOS: 06/21/24 Findings/ IMPRESSION: Unchanged scattered areas of hypoattenuation in the occipital lobes and bilateral cerebellar hemisphe res. No significant interval change. No evidence of intracranial hemorrhage, mass effect, midline yoselin ft, or herniation. No hydrocephalus. Please refer to same day MRI brain for further details.
[2024-06-23] MEDS: hydrALAZINE HCL 20 MG/ML VL IV ONE (01:29)
[2024-06-23] MEDS: ASPirin 81 mg TAB PO ONE ×2 (01:30→11:00)
[2024-06-23 01:41] LABS: BUN/Creatinine Ratio 10.1 (10.0-20.0); Blood Urea Nitrogen 9 mg/dL (9-23)
--- NOTE | 2024-06-23 03:09 | BSKYNEURO ---
[place] [facility] Note # Demographics Consult Type: Acute Stroke Level 1 (0-4.5 hrs) Patient Location: Inpatient First Name: Jennifer Last Name: Alejandra Date of : 1950 Age: 73 Gender: Female Facility: [facility] Time of Initial Page (): 06/22/2024, 23:59 Time of Return Call ( Time): 06/23/2024, 00:00 # HPI History: 75-year-old woman admitted on June 21 for abdominal pain. Imaging showed air in the liver and what was thought to be pancreatic cancer with metastasis to the liver. She was last normal around 10:00 p.m. the nurse came to check on her and found that she has some slurred speech, right hand and weakness and was not responding very well. She has also been c/o decreased vision # Scores Time of exam and NIHSS (): 06/23/2024, 00:00 Level of Consciousness 1a: [0] = Alert; keenly responsive LOC Questions 1b: [1] = Answers one correctly LOC Commands 1c: [0] = Performs both tasks correctly Best Gaze 2: [0] = Normal Visual 3: [1] = Partial hemianopia Facial Palsy 4: [0] = Normal symmetrical movements Motor Arm Left 5a: [0] = No drift Motor Arm Right 5b: [0] = No drift Motor Leg Left 6a: [0] = No drift Motor Leg Right 6b: [0] = No drift Limb Ataxia 7: [0] = Absent Sensory 8: [0] = Normal Best Language 9: [0] = No aphasia Dysarthria 10: [1] = Uavw-go-bjqijcim dysarthria Extinction and Inattention 11: [0] = No abnormality NIHSS Total: 3 # PMH-FH- Past Medical History: - cancer Medications: flagyl, dilaudid, zofran # Data Head CT: - no bleed - early ischemic change hypoattenuation in bilateral occipital lobes and cerebellar hemispheres MRI: - acute ischemia multiple scattered infarcts # Assessment Impression: - Ischemic Stroke (Acute) suspect patient is in a hypercoaguble state from her underlying cancer, occipital lobe lesions would also likely account for vision changes/loss # Plan Thrombolytic/Intervention: NOT IV Thrombolysis or IA Intervention candidate Thrombolytic Exclusion: unfavorable imaging, acute strokes seen on on MRI brain from earlier Diagnostic Test: - echo with bubble study Therapy/Evaluation: - PT/OT evaluation - speech/swallow consultation Medication: - aspirin 81 mg daily Start if there is no concern for underlying endocarditis Other: - If patient has any neurological deterioration please call back immediately # Demographics First Name: Jennifer Last Name: Alejandra Facility: [facility] Yes ELVIRA CABRAL Jr., MD Jun 23, 2024 03:09
--- NOTE | 2024-06-23 07:22 | RESUS ---
CODE ASSIST ASSESSSMENT Initial Information Code Assist Date: Jun 22, 2024 Code Assist Time: 23:52 Location of Arrest: Central Room # 206 Provider Name JACQUES Time Notified: 23:52 Time PMD returned call: 23:52 Crash Cart Opened and Supplies: No Situation Situation comment: During rounds, the patient was observed to have slurred speech and difficulty speaking. The patient was asked to squeeze both hands. The patient was able to squeeze with left hand but was unable to squeeze with her right hand and no movement was noted. Code assist called. Background Background: 73 y.o female presented to the ED via EMS for a chief complaint of intermittent upper abdominal pain associated with nausea and vomiting that presented about 5 months ago. Patient was seen at [facility] for this complain when it first presented, had a CT abdominal with contrast done in which showed a mass on her live. Patient has oncology appointment on 07/01/24 but states pain became unbearable and is described as sharp. Patient also complains of new onset of bilateral blurred vision x 2 days. Patient denies any recent eye injuries, trauma, discharge, redness, pain, or blindness. Assessment Temperature (Fahrenheit): 98.1 Blood Pressure Systolic: 188 Blood Pressure Diastolic: 88 Respiratory Rate: 20 O2 Sat by Pulse Oximetry: 94 Assessment comment: PT AWAKE ALERT CONFUSED AT THIS TIME, WEAKNESS NOTED ON R. ARM AND LEFT LEG. Recommendations/Interventions Procedures: Accu check Other Interventions CT HEAD Outcome Outcome: Problem Resolved Follow up Report Follow up Report PT NOT UPGRADED, CT UNCHANGED. Team Members Team Members JACQUES GARCIA, MORE RN HS, MIKE FIELD SERVICE TECHNICIAN POULTRY CHARGE, RAGINI RECEPTIONIST AIRLINE LOUNGE, LEON RECEPTIONIST AIRLINE LOUNGE, J LUIS ROSAS, MORE ROSADO Jun 23, 2024 07:22
--- NOTE | 2024-06-23 08:18 | ECG ---
[facility] Test Date: 2024-06-23 Test Time: 00:14:08 Pat Name: PEGGY SILVER Department: Respiratoy Room: 0206 A Gender: F Portuguese Tutor: LOU : 1950 Requested By: FELICE SHANKS Order Number: [id number] Reading MD: Nikole Landrum Measurements Intervals [place] Rate: 86 P: 51 IA: 162 QRS: 10 QRSD: 90 T: -31 QT: 390 QTc: 467 Interpretive Statements Sinus rhythm Nonspecific repol abnormality, diffuse leads ST depression V1-V3, suggest recording posterior leads Electronically Signed On 06-23-2024 8:54:12 PST by Nikole Landrum Please click the below link to view image of tracing.
[2024-06-23] MEDS ORDERED: VANCOMYCIN PER PHARMACY 0 MG IV SCH (09:00)
[2024-06-23 09:54] LABS: INR 1.18 (0.9-1.15); Partial Thromboplastin Time 29.8 SEC (24.5-34.5); Prothrombin Time 12.4 sec (9.3-11.8)
--- NOTE | 2024-06-23 12:29 | DVHSR ---
APPROVED REPORT EXAM: Two-dimensional and M-mode echocardiogram with Doppler and color Doppler. Blood Pressure: 167/93 mmHg INDICATION R/O endocarditis RISK FACTORS Height: 64, Weight: 174 DIMENSIONS LVDd4.7 (3.8-5.7cm)LA (2D)4.2 (1.9-4.0cm)Aortic Root3.5 (2.0-3.7cm) LVDs3.0 (2.5-4.0cm)LA (MM) (1.9-4.0cm)Aortic Cusp Exc1.3 (1.5-2.0cm) EF (%) 65.0 (55-70%)Rt. Atrium3.1 (1.9-4.0cm)Asc. Aorta cm IVSd1.0 (0.7-1.1cm)RV (D) (1.8-2.4cm) PWd1.0 (0.7-1.1cm) Mitral Valve MitralMitral Stenosis E wave0.78m/sMV Mean GR.2mmHg A wave0.96m/sMV Peak GR.141mmHg E/A ratio0.82D MVAcm2 DECEL [id number] 1/2 [id number] IVRTmsDop MVA3.24cm2 Aortic Valve Aortic ValveAortic Stenosis V11.13m/Amrita Mean GR.4mmHg V21.46m/Amrita Peak GR.8mmHg LVOT Diameter1.8 (1.8-2.4cm)Doppler AVA1.97cm2 AI P 1/2 Wpma218.98ms Pulmonic Valve V20.91m/s Tricuspid Valve TR Velocity2.51m/s [id number] LEFT VENTRICLE Normal left ventricular size. Systolic function is normal and ejection fraction is estimated at 65%. There is no regional wall motion abnormalities. Wall thickness appears to be normal. There is gra de II diastolic dysfunction. E to E prime ratio is in the indeterminate range. RIGHT VENTRICLE Normal right ventricular size. Right ventricular systolic function is normal. ATRIA Left atrium is mildly dilated in size. Right atrium is of normal size. MITRAL VALVE There is pzhy-yh-sokuhecm mitral annular calcification. No hemodynamically significant stenosis. Mi ld mitral regurgitation. PULMONIC VALVE Likely normal. TRICUSPID VALVE Normal structure and function. There is trace tricuspid regurgitation. RV systolic pressure is marito mated at 29 mm Hg. AORTIC VALVE Not very well visualized. No evidence of hemodynamically significant stenosis. There Is mild-to-mo derate insufficiency. GREAT VESSELS Aortic root is of normal size. Proximal ascending aorta is not well visualized. PERICARDIAL EFFUSION There is no pericardial effusion. IVC is of normal size and collapses normally with inspiration. Other Information Technically limited study due to patient laying flat on her back during exam. Was unable to follow i nstructions during exam. Conclusion The study is technically limited. Normal left ventricular size and systolic function. Ejection fraction is estimated at 65%. Normal right ventricular size and systolic function. Dmga-ia-ewpvlufp aortic insufficiency. Wzmj-ro-nrjwkzqu mitral annular calcification with no significant stenosis. No pericardial effusion. PA systolic pressure is estimated at 29 mm Hg.
[2024-06-23] MEDS: CEFEPIME 1GM/ 50ML 50 ML IV ONE (12:34)
[2024-06-23] MEDS: ATORVASTATIN 20 MG TAB PO ONE (12:42)
[2024-06-23] MEDS: VANCOMYCIN 1.75GM/350ML 350 ML IV ONE (12:55)
[2024-06-23] MEDS ORDERED: CLOPIDOGREL BISULFATE 75 MG TAB PO ONE ×2 (19:30→19:45)
--- NOTE | 2024-06-23 19:56 | DVHPN2 ---
Subjective 06/23-patient had acute changes overnight. Developing dysarthria, slurring of speech. Evaluated by nocturnal hospitalist. [facility] Neurology consulted. TPA was not recommended. MRI showing multiple embolic like strokes. Continuing treatment with aspirin, we will add Plavix. PT OT and speech recommended. Patient is unable to communicate now. Unable to get any ROS. She was also not writing on a pad due to poor vision. unable to communicate 06/22 patient continues to have blurry vision which is acute on chronic. On exam noted to have left nasal hemianopia. This appears to be acute. 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 CT abdomen without any acute process, CT head without any intracranial bleed. Reviewed: H&P Changes from previous H/P or p: No Changes General: Per HPI Musculoskeletal: back pain Objective Vitals Vital Signs Date Time Temp Pulse Resp B/P (MAP) Pulse Ox O2 Delivery O2 Flow Rate FiO2 06/23/24 17:00 97.7 86 15 155/74 (101) 95 97.7 06/22/24 20:00 Room Air* 0 21 Intake/Output Intake and Output 06/23/24 07:00 Intake Total 1420 ml Balance 1420 ml Intake Oral 380 ml IV Total 1040 ml # Voids 2 Exam GEN: Healthy appearing, well-developed, NAD. HEENT: NC/AT; MMM. CV: RRR, no m/r/g. LUNGS: CTAB, no w/r/c. ABD: Soft, NT/ND, NBS, no masses or organomegaly. EXT: skin Warm, well perfused. no rashes. No clubbing, cyanosis, or edema. NEURO: Ambulating with no limitations. Left nasal hemianopia,, later has aphasia/dysarthria. Right facial droop. Right upper extremity weakness. Unable to completely evaluate for sensation, but appears sensation is intact. Unable to evaluate for facial sensation. Medications Current Medications Medications Dose Ordered Sig/Varsha Route Start Time Stop Time Status Last Admin Dose Admin Sodium Chloride 1,000 ml @ 60 mls/hr [id number] IV 06/21/24 15:15 06/23/24 17:23 60 MLS/HR Ondansetron HCl 4 mg Q4HP PRN IV 06/21/24 15:15 06/22/24 19:53 4 MG Docusate Sodium 100 mg BIDPRN PRN PO 06/21/24 15:15 06/22/24 21:25 100 MG Enoxaparin Sodium 40 mg DAILY SC 06/22/24 10:00 06/22/24 08:53 40 MG Acetaminophen 650 mg Q6HP PRN PO 06/21/24 15:15 Morphine Sulfate 2 mg Q4HPRN PRN IV 06/21/24 15:15 06/22/24 08:52 2 MG Morphine Sulfate 30 mg Q12HR PO 06/22/24 22:00 Hydromorphone HCl 2 mg Q4HP PRN PO 06/22/24 10:45 06/23/24 15:43 2 MG Vancomycin HCl 0 ml @ 0 mls/hr UD IV 06/23/24 09:00 Cefepime HCl 50 ml @ 12.5 mls/hr Q12HR IV 06/23/24 21:00 Aspirin 81 mg DAILY PO 06/24/24 10:00 Atorvastatin Calcium 40 mg HS PO 06/24/24 22:00 Hydralazine HCl 10 mg Q6HP PRN IV 06/23/24 13:15 Clopidogrel Bisulfate 75 mg DAILY PO 06/24/24 10:00 UNV Laboratory Results Laboratory Tests 06/23/24 00:05 Chemistry Test 06/23/24 00:05 Albumin 3.6 g/dL (3.2-4.8) Calcium Level 9.2 mg/dL (8.7-10.4) Total Protein 6.0 g/dL (5.7-8.2) Coagulation Test 06/23/24 09:12 Prothrombin Time 12.4 sec (9.3-11.8) H Prothrombin Time INR 1.18 (0.9-1.15) H Activated Partial Thromboplast Time 29.8 SEC (24.5-34.5) LFT Test 06/23/24 00:05 Alanine Aminotransferase (ALT) 37 U/L (7-40) Alkaline Phosphatase 318 U/L (46-116) H Aspartate Amino Transferase (AST) 57 U/L (13-40) H Total Bilirubin 0.6 mg/dL (0.2-1.0) Urinalysis Test 06/21/24 17:00 Urine Color Yellow (Yellow) Urine Clarity Turbid (Clear) H Urine pH 6.0 (5.0-9.0) Urine Specific [place] 1.020 (1.001-1.035) Urine Protein 1+ (Negative) H Urine Ketones 1+ (Negative) H Urine Blood Trace /uL (Negative) H Urine Nitrite Negative (Negative) Urine Bilirubin Negative (Negative) Urine Urobilinogen 2 mg/dL (Negative) H Urine Leukocyte Esterase 3+ /uL (Negative) Urine RBC 6 /hpf (0 - 4) Urine WBC 26 /hpf (0 - 5) Urine Squamous Epithelial Cells Few /hpf (<5) Urine Bacteria Few /hpf (None Seen) H Urine Hyaline Casts Few /lpf (0 - 2) Urine Mucus Few (None Seen) Urine Glucose Normal mg/dL (Normal) Labs and/or images reviewed: Labs reviewed by me, Image(s) reviewed by me Assessment/Plan Assessment/Plan - 06/23-patient had acute changes overnight. Developing dysarthria, slurring of speech. Evaluated by nocturnal hospitalist. [facility] Neurology consulted. TPA was not recommended. MRI showing multiple embolic like strokes. Continuing treatment with aspirin, we will add Plavix. PT OT and speech recommended. Patient is unable to communicate now. Unable to get any ROS. She was also not writing on a pad due to poor vision. 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 -patient presenting with acute on chronic vision change. She has ongoing blurry vision, 4 days ago she had acute change and is having gait difficulty with this changes. On exam noted to have left nasal hemianopia. -CT abdomen without any acute process, CT head without any intracranial bleed. -MRI brain w/wo 06/22 - Multiple foci of restricted diffusion bilaterally seen in the peripheral vascular distribution such as the bilateral cerebellar hemispheres, bilateral occipital lobes, and small areas scattered throughout the cortex of the bilateral cerebral hemispheres. This distribution of findings are concerning for septic emboli. No evidence of hemorrhage, mass effect, or midline shift. No herniation. There is a curvilinear area of enhancement in the left cerebellum which appears to be adjacent to an area of restricted diffusion - repeat CT head with out infarcts evident - acute stroke worsen 06/23 early am - nuero consult advise AGAINST tPA (likely due to mri finding of emboli) - CT h/n - pending - Echo 06/22/24 - without any vegetations. - legs equal sizes - low suspicion of DVT and/or paradoxical embolic stroke. - asa plavix Lipitor - neuro consult - npo till SCABBLER. fialing SCABBLER with bedside rn trinity test - fall precautions - PT/SCABBLER Intractable Nausea -likely viral gastroenteritis versus due to vision changes, or possibly from dizziness related to the syndrome. -p.r.n. antiemetics. Clear liquid diet. Slow fluids, monitor symptoms UTI plausible - high risk, although asymptomatic. - keep ctx. pending ucx. Cancer - POA daughter wants to hold off port-a-cath for now. Diet npo DVT Lovenox subQ GI prophylaxis PPI IV daily Med tele Full code Plan discussed with: Patient My Orders Orders - ABIODUN PÉREZ MD Procedure Category Date Status Time Vancomycin Per PHA 06/23/24 In Process Pharmacy 09:00 Cefepime 1gm/ 50ml PHA 06/23/24 In Process (Maxipime 1gm/50ml) 21:00 Blood Culture THELMA 06/23/24 In Process 08:52 Aspirin Tablet PHA 06/24/24 In Process 10:00 * Neurology Consult CONS 06/23/24 Transmitted 11:00 Atorvastatin (Lipitor) PHA 06/24/24 In Process 22:00 * Swallow Request ST 06/23/24 Transmitted 13:08 Transfer Orders XFER 06/23/24 Transmitted 13:08 Hydralazine Injection PHA 06/23/24 In Process (Apresoline Inject 13:15 Code Status CODE 06/23/24 Transmitted 14:21 Regular Diet DIET 06/23/24 Transmitted Dinner Creatinine LAB 06/24/24 Verified 04:00 Complete Blood Count LAB 06/24/24 Verified 04:00 Vancomycin,Random LAB 06/24/24 Verified 04:00 Ct Head Neck With Cont CT 06/23/24 Logged 19:[address] 06/23/24 Transmitted 19:28 Pt Request For Service PT 06/23/24 Logged 19:28 Clopidogrel Bisulfate PHA 06/23/24 Logged (Plavix) 19:30 Clopidogrel Bisulfate PHA 06/24/24 Logged (Plavix) 10:00 Ct Head Neck With Cont CT 06/23/24 Logged 19:36 Clopidogrel Bisulfate PHA 06/23/24 Logged (Plavix) 19:45 Date of Service: Jun 23, 2024 Billing Provider: ABIODUN PÉREZ MD Common Visit Codes: [id number] INP/OBS CARE(HIGH) ABIODUN PÉREZ MD Jun 23, 2024 19:56
--- NOTE | 2024-06-23 20:07 | DVHINCON2 ---
Date of service: Jun 23, [address] Scott Bhat Reason for Consultation CBC symptoms, no acute stroke, MRI with emboli History of Present Illness Ms. Roberts is a 73 years old right-handed female with a history of pancreatitis, bile bladder cancer, pancreatic cancer, the patient was admitted to the [facility] on 06/21/2024 with a chief company of abdominal pain, nausea, vomiting, but the patient was has other medical problems Since Around the new year's day, she has had vision disturbance where she could not see close by object, such as her spoon, otherwise she was no mental status change, speech disturbance, or focal weakness numbness. But her MRI and CT brain scan she was multiple stroke in different he was territories [facility] Neurology, 06/23/24 03:09: NIHSS: 0. Patient was not a candidate of IV thrombolysis or IA intervention or treatment Around 06/23/2024 0722, she speech disturbance where she could not express herself, in the right hand weakness, falls CT brain scan did not she was new strokes Later this morning the family noticed right facial drooping, which has been improving since, with the right arm weakness, speech disturbance have had no changes She was no history of stroke Around 09/2023, she was found to have gallbladder cancer and she went through surgery. In 04/2024, the patient was developed jaundice, and she was found to have he was pancreatic cancer. The patient was seen in the [facility], now Dr. Negron is on case Urinalysis, 06/21/2024: WBC: 26, urine leukocyte esterase: 3+ CBC, 06/23/2024: Unremarkable PT/INR/PTT, 06/23/2024: 12.4/1.18/29.8 CMP, 06/23/2024: ALT: 57 EEG, 06/23/2024: Sinus rhythm Echocardiogram, 06/23/2024: The study is technically limited. Normal left ventricular size and systolic function. Ejection fraction is estimated at 65%. Normal right ventricular size and systolic function. Lhqb-uf-lpbptsel aortic insufficiency. Newy-hz-iertykad mitral annular calcification with no significant stenosis. No pericardial effusion. PA systolic pressure is estimated at [address] head, 06/22/2024: 1. Multiple areas of decreased attenuation in the right and left cerebellar hemispheres consistent with multiple old infarcts. 2. Area of decreased attenuation of the left posterior parietal occipital lobe consistent with areas of old infarct CT head, 06/23/24: Unchanged scattered areas of hypoattenuation in the occipital lobes and bilateral cerebellar hemispheres. No significant interval change. No evidence of intracranial hemorrhage, mass effect, midline shift, or herniation. No hydrocephalus. Please refer to same day MRI brain for further details MRI head, 06/23/24: Multiple foci of restricted diffusion bilaterally seen in the peripheral vascular distribution such as the bilateral cerebellar hemispheres, bilateral occipital lobes, and small areas scattered throughout the cortex of the bilateral cerebral hemispheres. This distribution of findings are concerning for septic emboli. No evidence of hemorrhage, mass effect, or midline shift. No herniation. There is a curvilinear area of enhancement in the left cerebellum which appears to be adjacent to an area of restricted diffusion. This is less likely metastatic disease and may be due to focal area of hypoperfusion or vascular malformation. Attention on follow-up is recommended Past Medical History Pancreatitis, Cancer, single kidney Past Surgical History Cholecystectomy, liver biopsy Family History: Patient reports no known family medical history. Family History Breast cancer Social History She was not tobacco smoke, but she had secondhand smoke, no history of alcohol or recreational substance abuse Allergies: Coded Allergies: NO KNOWN ALLERGIES (Unverified , 06/21/24) Home Meds Reported Medications Omeprazole (Gnp Omeprazole) 20 Mg Tab, 1 TAB PO DAILY, #90 TAB 1 Refill 06/21/24 Sertraline Hcl (Sertraline Hcl) 50 Mg Tab, 1 TAB PO DAILY, #30 TAB 5 Refills 06/21/24 Current Medications Current Medications Medications (Trade) Dose Ordered Sig/Varsha Route PRN Reason Start Time Stop Time Status Last Admin Morphine Sulfate (Oramorph Sustained Release Tab) 30 mg Q12HR PO 06/22/24 22:00 Vancomycin HCl 0 ml @ 0 mls/hr UD IV 06/23/24 09:00 Cefepime HCl 50 ml @ 12.5 mls/hr Q12HR IV 06/23/24 21:00 Aspirin 81 mg DAILY PO 06/24/24 10:00 Atorvastatin Calcium (Lipitor) 40 mg HS PO 06/24/24 22:00 Hydralazine HCl (Apresoline Injection) 10 mg Q6HP PRN IV SBP>180 06/23/24 13:15 Clopidogrel Bisulfate (Plavix) 75 mg DAILY PO 06/24/24 10:00 UNV Review of Systems As above, the other systems are negative Vital Signs Vital Signs Date Time Temp Pulse Resp B/P (MAP) Pulse Ox O2 Delivery O2 Flow Rate FiO2 06/23/24 17:00 97.7 86 15 155/74 (101) 95 97.7 06/22/24 20:00 Room Air* 0 21 Physical Exam GENERAL EXAM: General: the patient is well developed and nourished. No acute distress. HEENT: Normocephalic, neck is supple, no carotid bruits. No mass. RESPIRATORY: Normal respiratory effort with symmetrical lung expansion. Lungs clear to auscultation. CARDIOVASCULAR: Regular rate and rhythm with no murmurs. S1, S2. ABDOMEN: Soft, nontender, normal bowel sound NEUROLOGICAL: MENTAL STATUS: Awake and alert. Oriented to person, place, she knows the year SPEECH, LANGUAGE, HIGHER CORTICAL FUNCTION: She was speaks minimally, she was expressive aphasia, possible comprehensive aphasia CRANIAL NERVES: #2: Left homonymous hemianopsia. The optic discs were sharp. #3,4,6: Pupils are equal, round and reactive. EOMs full and conjugate. No nystagmus. #5: Facial sensation intact in all three divisions bilaterally. #7: Mild right facial weakness of upper motor neuron pattern #8: Hearing grossly normal to voice. #9,10: Uvula and soft palate rise in the midline. Swallow and voice are normal. #11: Trapezius and sternomastoid strength intact bilaterally. #12: Tongue midline. No fasciculations or atrophy. SENSATION: Sensation to touch and pinprick is normal. MOTOR: Normal tone in the upper and lower extremity. Normal muscle bulk. No fasciculations. No abnormal movements or posturing. Muscle strength of the major groups in the upper left extremities is 5/5. Muscle strength of the major groups in the right extremities is: Upper: 2/5, lower: 4-5/5. REFLEXES: Deep tendon reflexes are symmetrical. No pathological reflexes. CEREBELLAR/COORDINATION: No ataxia in the left hand GAIT/STATION: deferred. Labs/Diagnostic Data Labs Test 06/23/24 09:12 06/23/24 00:05 06/22/24 09:50 06/21/24 17:00 Range/Units Prothrombin Time 12.4 H 9.3-11.8 sec Prothrombin Time INR 1.18 H 0.9-1.15 Activated Partial Thromboplast Time 29.8 24.5-34.5 SEC White Blood Count 9.4 4.4-10.8 10^3/uL Red Blood Count 4.13 4.0-5.20 10^6/uL Hemoglobin 12.7 12.2-16.2 g/dL Hematocrit 37.5 36.0-46.0 % Mean Corpuscular Volume 90.9 80.0-100.0 fL Mean Corpuscular Hemoglobin 30.7 28.0-32.0 pg Mean Corpuscular Hemoglobin Concent 33.8 32.0-36.0 g/dL Red Cell Distribution Width 13.9 11.8-14.3 % Platelet Count 208 140-450 10^3/uL Mean Platelet Volume 7.8 6.9-10.8 fL Neutrophils (%) (Auto) 72.2 37.0-80.0 % Lymphocytes (%) (Auto) 15.0 10.0-50.0 % Monocytes (%) (Auto) 9.9 0.0-12.0 % Eosinophils (%) (Auto) 2.2 0.0-7.0 % Basophils (%) (Auto) 0.7 0.0-2.0 % Neutrophils # (Auto) 6.8 1.6-8.6 10 ^3/uL Lymphocytes # (Auto) 1.4 0.4-5.4 10 ^3/uL Monocytes # (Auto) 0.9 0-1.3 10 ^3/uL Eosinophils # (Auto) 0.2 0-0.8 10 ^3/uL Basophils # (Auto) 0.1 0-0.2 10 ^3/uL Nucleated Red Blood Cells 0.0 % Sodium Level 136 136-145 mmol/L Potassium Level 3.8 3.5-5.1 mmol/L Chloride Level 102 98-107 mmol/L Carbon Dioxide Level 27 20-31 mmol/L Anion Gap 7 5-15 Blood Urea Nitrogen 9 9-23 mg/dL Creatinine 0.89 0.550-1.02 mg/dL Glomerular Filtration Rate Calc 68 >90 mL/min BUN/Creatinine Ratio 10.1 10.0-20.0 Serum Glucose 130 H 74-106 mg/dL Calcium Level 9.2 8.7-10.4 mg/dL Total Bilirubin 0.6 0.2-1.0 mg/dL Aspartate Amino Transferase (AST) 57 H 13-40 U/L Alanine Aminotransferase (ALT) 37 7-40 U/L Alkaline Phosphatase 318 H 46-116 U/L Total Protein 6.0 5.7-8.2 g/dL Albumin 3.6 3.2-4.8 g/dL Lactate Dehydrogenase 366 H 120-246 U/L Urine Color Yellow Yellow Urine Clarity Turbid H Clear Urine pH 6.0 5.0-9.0 Urine Specific [place] 1.020 1.001-1.035 Urine Protein 1+ H Negative Urine Ketones 1+ H Negative Urine Blood Trace H Negative /uL Urine Nitrite Negative Negative Urine Bilirubin Negative Negative Urine Urobilinogen 2 H Negative mg/dL Urine Leukocyte Esterase 3+ Negative /uL Urine RBC 6 0 - 4 /hpf Urine WBC 26 0 - 5 /hpf Urine Squamous Epithelial Cells Few <5 /hpf Urine Bacteria Few H None Seen /hpf Urine Hyaline Casts Few 0 - 2 /lpf Urine Mucus Few None Seen Urine Glucose Normal Normal mg/dL Test 06/21/24 15:42 Range/Units Lactic Acid Level 1.2 0.4-2.0 mmol/L Lipase 26 12-53 U/L Assessment Multiple acute strokes Recurrent strokes Aphasia, secondary to multiple strokes Right hemiparesis, secondary to multiple strokes Right homonymous hemianopsia, secondary to multiple strokes ? Hypercoagulopathy Pancreatic cancer Gallbladder cancer Plan/Recommendation Monitoring Supportive treatment Telemetry Lipid profile [id number] Aspirin 81 mg daily Clopidogrel 75 mg daily Lipitor 40 mg daily DVT prophylaxis Communication board Dr. Negron on case More recommendation per clinical course Progress: Poor I have discussed with her , sons, daughter and her nurse Time spent was more than 1 hours This medical document was created using an electronic medical record system with [employer] dictation system. Although this document has been carefully reviewed, there may still be some phonetic and typographical errors. These areas are purely typographical due to imperfections of the software programs, and do not reflect any compromise in the patient's medical care. Plan discussed with: Spouse, Daughter, Son, Other REYNOLD HAYDEN MD Jun 23, 2024 20:07
[2024-06-23] MEDS: KETOROLAC TROMETH 30 MG/ML 1ML VIAL IV ONE (21:40)
[2024-06-23] MEDS: CEFEPIME 1GM/ 50ML 50 ML IV SCH (21:40)
[2024-06-23 23:02] LABS: Triglycerides 71 mg/dL (< 150)
[2024-06-23 23:03] LABS: LDL Cholesterol 55 mg/dL (< 100)
[2024-06-23 23:04] LABS: Cholesterol 128 mg/dL (< 200); HDL Cholesterol 55 mg/dL (40-59)
[2024-06-23] MEDS ORDERED: IOHEXOL 350 MG/ML 100ML IJ ONE (23:45)
[2024-06-24] VITALS (8 sets, daily range): BP systolic 153–164; BP diastolic 67–76; PULSE 69–96; RESP 16–20; TEMP 97.5–98.5; O2SAT 93–96
--- NOTE | 2024-06-24 00:25 | DVH ---
INDICATION: stroke COMPARISON: None TECHNIQUE: CTA head without and with intravenous contrast. CTA neck with intravenous contrast. 3D image postprocessing was performed on a dedicated workstation and images were used for interpretation and reporting. Radiation Dose Information: CT Dose: CTDI volume is 50.26 mGy. Dose-length product is 1631.08 mGy*cm FINDINGS: CT head: There is no evidence of acute intracranial hemorrhage, extra-axial collection, mass effect, midline s hift, herniation or hydrocephalus. The ventricles, sulci and cisterns are age appropriate. Chronic microvascular ischemic changes. No evidence of acute infarct. The visualized paranasal sinuses and m astoid air cells are clear. The surrounding soft tissues and osseous structures are unremarkable. CTA head: There is normal enhancement of the visualized distal internal carotid, anterior and middle cerebral a rteries. There is a normal anterior communicating artery complex. There are bilateral posterior com municating arteries. The vertebral, basilar, cerebellar and posterior cerebral arteries are within n ormal limits. The early parenchymal enhancement is grossly unremarkable. The visualized intracrania l venous structures are grossly unremarkable. CTA neck: The visualized thoracic aortic arch and proximal great vessels are unremarkable. The left common, internal and external carotid arteries are within normal limits. The right common, internal and external carotid arteries are within normal limits. The cervical segments of the right and left vertebral arteries are within normal limits. The limited visualized lung apices are clear. The surrounding soft tissues and osseous structures ar e otherwise unremarkable. IMPRESSION: 1. No evidence of acute intracranial hemorrhage, mass effect or hydrocephalus. Chronic microvascular ischemic changes 2. No evidence of hemodynamically significant intracranial stenosis, proximal occlusion or aneurysm. 3. No evidence of hemodynamically significant cervical stenosis or dissection. All CT scans at this medical facility are performed using dose modulation techniques as appropriate t o a performed exam including the following: Automated exposure control was utilized; adjustment of th e MA and/or KV according to patient size; and use of iterative reconstruction technique.
[2024-06-24] MEDS: LACTATED RINGER'S 1,000 ML IV ONE (00:58)
[2024-06-24] MEDS: D5W/SOD CHL 0.45% 1,000 ML IV SCH (05:54)
[2024-06-24 08:08] LABS: Basophils # (auto) 0 10 ^3/uL (0-0.2); Basophils % (auto) 0.5 % (0.0-2.0); Eosinophils # (auto) 0.2 10 ^3/uL (0-0.8); Eosinophils % (auto) 1.8 % (0.0-7.0); Hematocrit 34.3 % (36.0-46.0); Hemoglobin 11.4 g/dL (12.2-16.2); Lymphocytes % (auto) 10.5 % (10.0-50.0); Mean Corpuscular Hemoglobin 30.1 pg (28.0-32.0); Mean Corpuscular Hgb Conc. 33.3 g/dL (32.0-36.0); Mean Corpuscular Volume 90.4 fL (80.0-100.0); Monocytes # (auto) 0.9 10 ^3/uL (0-1.3); Monocytes % (auto) 8.8 % (0.0-12.0); Neutrophils # (auto) 7.6 10 ^3/uL (1.6-8.6); Neutrophils % (auto) 78.4 % (37.0-80.0); Platelet Count (auto) 198 10^3/uL (140-450); Red Cell Distribution Width 14.2 % (11.8-14.3); White Blood Cell 9.7 10^3/uL (4.4-10.8)
[2024-06-24 08:30] LABS: Alanine Aminotransferase 29 U/L (7-40); Albumin 3.2 g/dL (3.2-4.8); Anion Gap 10 (5-15); BUN/Creatinine Ratio 14.9 (10.0-20.0); Bilirubin, Total 0.7 mg/dL (0.2-1.0); Blood Urea Nitrogen 13 mg/dL (9-23); Calcium 9.1 mg/dL (8.7-10.4); Carbon Dioxide 25 mmol/L (20-31); Chloride 102 mmol/L (98-107); Sodium 137 mmol/L (136-145)
[2024-06-24 08:44] LABS: Alkaline Phosphatase 298 U/L (46-116); Aspartate Aminotransferase 44 U/L (13-40); Glucose 153 mg/dL (74-106); Potassium 3.5 mmol/L (3.5-5.1); Total Protein 5.4 g/dL (5.7-8.2)
[2024-06-24] MEDS: ASPirin 81 mg TAB PO SCH (11:33)
[2024-06-24] MEDS: CLOPIDOGREL BISULFATE 75 MG TAB PO SCH (11:34)
[2024-06-24] MEDS: VANCOMYCIN 1GM/250ML KIT 250 ML IV SCH (11:42)
--- NOTE | 2024-06-24 12:10 | DVHPN2 ---
Progress Note - Dictate Date Seen: Jun 24, 2024 Medical Necessity Reason Pt with a Central, PICC or Fol: No Subjective Ms. Roberts is a 73 years old right-handed female with a history of pancreatitis, bile bladder cancer, pancreatic cancer, the patient was admitted to the [facility] on 06/21/2024 with a chief company of abdominal pain, nausea, vomiting, but the patient also has other medical problems I have seen and examined the patient, I have discussed with her nurse, and other medical staff, she was doing fine, the muscle power in the right arm than leg is better, but dysphagia, right homonymous hemianopsia have no improvement No new complaints Urinalysis, 06/21/2024: WBC: 26, urine leukocyte esterase: 3+ CBC, 06/23/2024: Unremarkable PT/INR/PTT, 06/23/2024: 12.4/1.18/29.8 CMP, 06/23/2024: ALT: 57 TG/HDL/LDL/HDL, 06/23/2024: 71/128/55/55 ECG, 06/23/2024: Sinus rhythm Echocardiogram, 06/23/2024: The study is technically limited. Normal left ventricular size and systolic function. Ejection fraction is estimated at 65%. Normal right ventricular size and systolic function. [id number] aortic insufficiency. [id number] mitral annular calcification with no significant stenosis. No pericardial effusion. PA systolic pressure is estimated at [address] head, 06/22/2024: 1. Multiple areas of decreased attenuation in the right and left cerebellar hemispheres consistent with multiple old infarcts. 2. Area of decreased attenuation of the left posterior parietal occipital lobe consistent with areas of old infarct CT head, 06/23/24: Unchanged scattered areas of hypoattenuation in the occipital lobes and bilateral cerebellar hemispheres. No significant interval change. No evidence of intracranial hemorrhage, mass effect, midline shift, or herniation. No hydrocephalus. Please refer to same day MRI brain for further details CTA head, neck, 06/24/24: 1. No evidence of acute intracranial hemorrhage, mass effect or hydrocephalus. Chronic microvascular ischemic changes 2. No evidence of hemodynamically significant intracranial stenosis, proximal occlusion or aneurysm. 3. No evidence of hemodynamically significant cervical stenosis or dissection MRI head, 06/23/24: Multiple foci of restricted diffusion bilaterally seen in the peripheral vascular distribution such as the bilateral cerebellar hemispheres, bilateral occipital lobes, and small areas scattered throughout the cortex of the bilateral cerebral hemispheres. This distribution of findings are concerning for septic emboli. No evidence of hemorrhage, mass effect, or midline shift. No herniation. There is a curvilinear area of enhancement in the left cerebellum which appears to be adjacent to an area of restricted diffusion. This is less likely metastatic disease and may be due to focal area of hypoperfusion or vascular malformation. Attention on follow-up is recommend vital signs Vital Sign Date Time Temp Pulse Resp B/P (MAP) Pulse Ox O2 Delivery O2 Flow Rate FiO2 06/24/24 09:00 98.0 81 18 163/69 (100) 95 98.0 06/23/24 20:00 Room Air* 0 21 Total Intake and Output 06/23/24 06/23/24 06/24/24 15:00 23:00 07:00 Intake Total 0 ml 1050 ml Output Total 0 ml Balance 0 ml 1050 ml medications Current Medications Medications Dose Ordered Sig/Varsha Route Start Time Stop Time Status Last Admin Dose Admin Sodium Chloride 1,000 ml @ 60 mls/hr [id number] IV 06/21/24 15:15 06/23/24 17:23 60 MLS/HR Ondansetron HCl 4 mg Q4HP PRN IV 06/21/24 15:15 06/22/24 19:53 4 MG Docusate Sodium 100 mg BIDPRN PRN PO 06/21/24 15:15 06/22/24 21:25 100 MG Enoxaparin Sodium 40 mg DAILY SC 06/22/24 10:00 06/24/24 11:39 40 MG Acetaminophen 650 mg Q6HP PRN PO 06/21/24 15:15 Morphine Sulfate 2 mg Q4HPRN PRN IV 06/21/24 15:15 06/22/24 08:52 2 MG Morphine Sulfate 30 mg Q12HR PO 06/22/24 22:00 06/24/24 11:34 30 MG Hydromorphone HCl 2 mg Q4HP PRN PO 06/22/24 10:45 06/23/24 15:43 2 MG Vancomycin HCl 0 ml @ 0 mls/hr UD IV 06/23/24 09:00 Cefepime HCl 50 ml @ 12.5 mls/hr Q12HR IV 06/23/24 21:00 06/23/24 21:40 12.5 MLS/HR Aspirin 81 mg DAILY PO 06/24/24 10:00 06/24/24 11:33 81 MG Atorvastatin Calcium 40 mg HS PO 06/24/24 22:00 Hydralazine HCl 10 mg Q6HP PRN IV 06/23/24 13:15 Clopidogrel Bisulfate 75 mg DAILY PO 06/24/24 10:00 06/24/24 11:34 75 MG Vancomycin HCl 250 ml @ 250 mls/hr DAILY IV 06/24/24 11:00 06/24/24 11:42 250 MLS/HR objective General: the patient is well developed and nourished. No acute distress. MENTAL STATUS: Awake and alert. Oriented to person, place, she knows the year SPEECH, LANGUAGE, HIGHER CORTICAL FUNCTION: She was speaks minimally, she was expressive aphasia, possible comprehensive aphasia CRANIAL NERVES: Left homonymous hemianopsia. Pupils are equal, round and reactive. EOMs full and conjugate. No nystagmus. Facial sensation intact in all three divisions bilaterally. Mild right facial weakness of upper motor neuron pattern SENSATION: Sensation to touch and pinprick is normal. MOTOR: Normal tone in the upper and lower extremity. Normal muscle bulk. No fasciculations. No abnormal movements or posturing. Muscle strength of the major groups in the upper left extremities is 5/5. Muscle strength of the major groups in the right extremities is: Upper: 3-4/5, lower: 4-5/5. REFLEXES: Deep tendon reflexes are symmetrical. No pathological reflexes. CEREBELLAR/COORDINATION: No ataxia in the left arm laboratory and microbiology Laboratory Tests 06/24/24 07:49 Test 06/24/24 07:49 Range/Units Serum Glucose 153 H 74-106 mg/dL Problem List Multiple acute strokes Recurrent strokes Aphasia, secondary to multiple strokes Right hemiparesis, secondary to multiple strokes Right homonymous hemianopsia, secondary to multiple strokes ? Hypercoagulopathy Pancreatic cancer Gallbladder cancer Assessment/Plan Monitoring Supportive treatment Telemetry PT/INR/PTT YUSUF Aspirin 81 mg daily Clopidogrel 75 mg daily Lipitor 40 mg daily DVT prophylaxis Communication board Dr. Negron on case Consult steward/stewardess bath Re: YUSUF More recommendation per clinical course This medical document was created using an electronic medical record system with [employer] dictation system. Although this document has been carefully reviewed, there may still be some phonetic and typographical erro Prognosis poor Plan discussed with: Other Total Time (mins): 40 REYNOLD HAYDEN MD Jun 24, 2024 12:10
--- NOTE | 2024-06-24 15:53 | DVHINCON2 ---
Date Seen: Jun 24, 2024 Referring Physician MD Tarun Reason for Consultation YUSUF History of Present Illness This is a 73-year-old female patient who presents to emergency room with chief complaint of abdominal pain, nausea, vomiting, and blurry vision for one week. She was brought to the emergency room for further evaluation. During this admission, the patient was a code assist on 06/22/24 in which the patient was o bserved to have slurred speech and difficulty speaking. A brain MRI was done at time and reveals multiple foci of restricted diffusion bilaterally seen in the peripheral vascular distribution such as the bilateral cerebellar hemispheres, bilateral occipital lobes, and small areas scattered throughout the cortex of the bilateral cerebral hemispheres. This distribution of findings are concerning for septic emboli. Cardiology has now been consulted for request of transesophageal echocardiogram. The time of assessment, the patient is unable to verbalize anything. The patient's son at bedside is able to provide accurate past medical history. Initial twelve lead electrocardiogram reveals normal sinus rhythm with nonspecific ST depression to leads V1 through V3. Significant past medical history includes hypertension, pancreatic cancer, gallbladder cancer, and anxiety. Per patient's son, the patient has no underlying cardiac history. He reports that the patient is pending Port-A-Cath placement with her primary oncologist Dr. Negron in the near future. Past Medical History Past medical history reviewed. No other significant than mentioned above. Past Surgical History Cholecystectomy Hysterectomy Biliary stent Family History: Patient reports no known family medical history. Family History Family history reviewed. Social History Denies the use of tobacco, alcohol or illicit drugs. Allergies: Coded Allergies: NO KNOWN ALLERGIES (Unverified , 06/21/24) Home Meds Reported Medications Omeprazole (Gnp Omeprazole) 20 Mg Tab, 1 TAB PO DAILY, #90 TAB 1 Refill 06/21/24 Sertraline Hcl (Sertraline Hcl) 50 Mg Tab, 1 TAB PO DAILY, #30 TAB 5 Refills 06/21/24 Home Meds Home medications reviewed. Current Medications Current Medications Medications (Trade) Dose Ordered Sig/Varsha Route PRN Reason Start Time Stop Time Status Last Admin Cefepime HCl 50 ml @ 12.5 mls/hr Q12HR IV 06/23/24 21:00 06/24/24 13:33 Aspirin 81 mg DAILY PO 06/24/24 10:00 06/24/24 11:33 Atorvastatin Calcium (Lipitor) 40 mg HS PO 06/24/24 22:00 Clopidogrel Bisulfate (Plavix) 75 mg DAILY PO 06/24/24 10:00 06/24/24 11:34 Dextrose/Sodium Chloride 1,000 ml @ 100 mls/hr Q10H IV 06/23/24 20:00 06/24/24 06:00 DC 06/24/24 05:54 Vancomycin HCl 250 ml @ 250 mls/hr DAILY IV 06/24/24 11:00 06/24/24 11:42 Review of Systems Constitutional: No symptom reported Ears, Nose, & Throat: No symptom reported Eyes: Blurry vision Neurological: No symptoms reported Pulmonary/Respiratory: No symptoms reported Cardiovascular: No symptom reported Gastrointestinal: Abdominal pain, nausea, vomiting Genitourinary: No symptom reported Musculoskeletal: No symptom reported Skin: No symptom reported Psychiatric: No symptom reported Endocrine: No symptom reported Hematologic/Lymphatic: No symptom reported Vital Signs Vital Signs Date Time Temp Pulse Resp B/P (MAP) Pulse Ox O2 Delivery O2 Flow Rate FiO2 06/24/24 13:21 98.5 80 18 158/73 (101) 95 98.5 06/23/24 20:00 Room Air* 0 21 Physical Exam General Appearance: Cooperative. Obese Pulmonary/Respiratory: Clear, bilateral breaths sounds. Cardiovascular/Chest: Regular rate and rhythm. Peripheral Pulses: 2+ Radial (R). 2+ Radial (L). 2+ Pedal (R). 2+ Pedal (L) Abdominal Exam: Normal bowel sounds. Ankle Exam: Negative ankle edema Lower extremities: Negative lower extremity edema Neuro/Mental Status: A/OX4, coherent. Dysarthria Thoughts/Psych: Normal thought pattern. Appropriate mood and affect. Good judgment and insight. Appearance: No acute distress. Skin Exam: Generalized ecchymosis. Skin warm and dry Labs/Diagnostic Data Labs Test 06/24/24 07:49 06/23/24 09:12 06/23/24 00:05 06/22/24 09:50 Range/Units White Blood Count 9.7 4.4-10.8 10^3/uL Red Blood Count 3.80 L 4.0-5.20 10^6/uL Hemoglobin 11.4 L 12.2-16.2 g/dL Hematocrit 34.3 L 36.0-46.0 % Mean Corpuscular Volume 90.4 80.0-100.0 fL Mean Corpuscular Hemoglobin 30.1 28.0-32.0 pg Mean Corpuscular Hemoglobin Concent 33.3 32.0-36.0 g/dL Red Cell Distribution Width 14.2 11.8-14.3 % Platelet Count 198 140-450 10^3/uL Mean Platelet Volume 7.9 6.9-10.8 fL Neutrophils (%) (Auto) 78.4 37.0-80.0 % Lymphocytes (%) (Auto) 10.5 10.0-50.0 % Monocytes (%) (Auto) 8.8 0.0-12.0 % Eosinophils (%) (Auto) 1.8 0.0-7.0 % Basophils (%) (Auto) 0.5 0.0-2.0 % Neutrophils # (Auto) 7.6 1.6-8.6 10 ^3/uL Lymphocytes # (Auto) 1.0 0.4-5.4 10 ^3/uL Monocytes # (Auto) 0.9 0-1.3 10 ^3/uL Eosinophils # (Auto) 0.2 0-0.8 10 ^3/uL Basophils # (Auto) 0 0-0.2 10 ^3/uL Nucleated Red Blood Cells 0.0 % Sodium Level 137 136-145 mmol/L Potassium Level 3.5 3.5-5.1 mmol/L Chloride Level 102 98-107 mmol/L Carbon Dioxide Level 25 20-31 mmol/L Anion Gap 10 5-15 Blood Urea Nitrogen 13 9-23 mg/dL Creatinine 0.87 0.550-1.02 mg/dL Glomerular Filtration Rate Calc 70 >90 mL/min BUN/Creatinine Ratio 14.9 10.0-20.0 Serum Glucose 153 H 74-106 mg/dL Calcium Level 9.1 8.7-10.4 mg/dL Total Bilirubin 0.7 0.2-1.0 mg/dL Aspartate Amino Transferase (AST) 44 H 13-40 U/L Alanine Aminotransferase (ALT) 29 7-40 U/L Alkaline Phosphatase 298 H 46-116 U/L Total Protein 5.4 L 5.7-8.2 g/dL Albumin 3.2 3.2-4.8 g/dL Random Vancomycin Level 13.0 H 5-10 ug/mL Prothrombin Time 12.4 H 9.3-11.8 sec Prothrombin Time INR 1.18 H 0.9-1.15 Activated Partial Thromboplast Time 29.8 24.5-34.5 SEC Triglycerides Level 71 < 150 mg/dL Cholesterol Level 128 < 200 mg/dL LDL Cholesterol 55 < 100 mg/dL HDL Cholesterol 55 40-59 mg/dL Lactate Dehydrogenase 366 H 120-246 U/L Test 06/21/24 17:00 06/21/24 15:42 Range/Units Urine Color Yellow Yellow Urine Clarity Turbid H Clear Urine pH 6.0 5.0-9.0 Urine Specific [place] 1.020 1.001-1.035 Urine Protein 1+ H Negative Urine Ketones 1+ H Negative Urine Blood Trace H Negative /uL Urine Nitrite Negative Negative Urine Bilirubin Negative Negative Urine Urobilinogen 2 H Negative mg/dL Urine Leukocyte Esterase 3+ Negative /uL Urine RBC 6 0 - 4 /hpf Urine WBC 26 0 - 5 /hpf Urine Squamous Epithelial Cells Few <5 /hpf Urine Bacteria Few H None Seen /hpf Urine Hyaline Casts Few 0 - 2 /lpf Urine Mucus Few None Seen Urine Glucose Normal Normal mg/dL Lactic Acid Level 1.2 0.4-2.0 mmol/L Lipase 26 12-53 U/L Microbiology Date/Time Source Procedure Growth Status 06/23/24 11:30 Blood Blood Culture - Preliminary NO GROWTH AFTER 24 HOURS OF INCUBATION. Resulted Assessment Acute embolic CVA, rule out cardiac source Aphasia Pancreatic and gallbladder cancer Obesity Plan/Recommendation We will continue with the following plan/recommendations (Dr. Giordano): Case discussed with . Transthoracic echocardiogram reveals EF 65%. The patient is to undergo a transesophageal echocardiogram to rule out cardiac source of embolus. The patient was be scheduled for 06/25/24 at first availability. In the meantime, continue with cardiac surveillance. Monitor for any cardiac arrhythmias. Thank you for allowing us to care for this patient. Please call with any questions or concerns. Critical care time spent: 42 minutes This medical document was created using an electronic medical record system with voice recognition software and computerized dictation system. Although this document has been carefully reviewed, there might still be some phonetic and typographical errors. Occasional wrong-word or ``sound-alike substitutions may have occurred due to the inherent limitations of voice recognition software. These areas are purely typographical due to imperfections of the software programs and do not reflect any compromise in the patient's medical care. Please read the chart carefully and recognize, using context, where these substitutions have occurred. Plan discussed with: Patient, Son NYHA Physical activity limitations: NA Date of Service: Jun 24, 2024 Billing Provider: LAKHWINDER RUTLEDGE Cardiology Common Codes: 29663-[id number] INP/OBS CARE (High) Cardiology Consultation Codes: [id number] CONSULT <45MIN LAKHWINDER RUTLEDGE Jun 24, 2024 15:53
[2024-06-24 17:00] LABS: INR 1.26 (0.9-1.15); Prothrombin Time 13.1 sec (9.3-11.8)
--- NOTE | 2024-06-24 19:52 | DVHPN2 ---
Subjective 06/24 no further worsening. minimally following commands. POA wants to hold off chemo port insertion. 06/23-patient had acute changes overnight. Developing dysarthria, slurring of speech. Evaluated by nocturnal hospitalist. Blue justyn Neurology consulted. TPA was not recommended. MRI showing multiple embolic like strokes. Continuing treatment with aspirin, we will add Plavix. PT OT and speech recommended. Patient is unable to communicate now. Unable to get any ROS. She was also not writing on a pad due to poor vision. unable to communicate 06/22 patient continues to have blurry vision which is acute on chronic. On exam noted to have left nasal hemianopia. This appears to be acute. 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 CT abdomen without any acute process, CT head without any intracranial bleed. Reviewed: H&P Changes from previous H/P or p: No Changes General: Per HPI Objective Vitals Vital Signs Date Time Temp Pulse Resp B/P (MAP) Pulse Ox O2 Delivery O2 Flow Rate FiO2 06/24/24 17:00 97.5 83 16 153/75 (101) 93 97.5 06/24/24 08:00 Room Air* 0 21 Intake/Output Intake and Output 06/24/24 07:00 Intake Total 1050 ml Output Total 0 ml Balance 1050 ml Intake Oral 0 ml IV Total 1050 ml Output Stool Total 0 ml # Voids 5 Exam GEN: Healthy appearing, well-developed, NAD. HEENT: NC/AT; MMM. CV: RRR, no m/r/g. LUNGS: CTAB, no w/r/c. ABD: Soft, NT/ND, NBS, no masses or organomegaly. EXT: skin Warm, well perfused. no rashes. No clubbing, cyanosis, or edema. NEURO: Ambulating with no limitations. Left nasal hemianopia,, later has aphasia/dysarthria. Right facial droop. Right upper extremity weakness. Unable to completely evaluate for sensation, but appears sensation is intact. Unable to evaluate for facial sensation. Medications Current Medications Medications Dose Ordered Sig/Varsha Route Start Time Stop Time Status Last Admin Dose Admin Sodium Chloride 1,000 ml @ 60 mls/hr [id number] IV 06/21/24 15:15 06/23/24 17:23 60 MLS/HR Ondansetron HCl 4 mg Q4HP PRN IV 06/21/24 15:15 06/22/24 19:53 4 MG Docusate Sodium 100 mg BIDPRN PRN PO 06/21/24 15:15 06/22/24 21:25 100 MG Enoxaparin Sodium 40 mg DAILY SC 06/22/24 10:00 06/24/24 11:39 40 MG Acetaminophen 650 mg Q6HP PRN PO 06/21/24 15:15 Morphine Sulfate 2 mg Q4HPRN PRN IV 06/21/24 15:15 06/22/24 08:52 2 MG Morphine Sulfate 30 mg Q12HR PO 06/22/24 22:00 06/24/24 11:34 30 MG Hydromorphone HCl 2 mg Q4HP PRN PO 06/22/24 10:45 06/23/24 15:43 2 MG Vancomycin HCl 0 ml @ 0 mls/hr UD IV 06/23/24 09:00 Cefepime HCl 50 ml @ 12.5 mls/hr Q12HR IV 06/23/24 21:00 06/24/24 13:33 12.5 MLS/HR Aspirin 81 mg DAILY PO 06/24/24 10:00 06/24/24 11:33 81 MG Atorvastatin Calcium 40 mg HS PO 06/24/24 22:00 Hydralazine HCl 10 mg Q6HP PRN IV 06/23/24 13:15 Clopidogrel Bisulfate 75 mg DAILY PO 06/24/24 10:00 06/24/24 11:34 75 MG Vancomycin HCl 250 ml @ 250 mls/hr DAILY IV 06/24/24 11:00 06/24/24 11:42 250 MLS/HR Laboratory Results Laboratory Tests 06/24/24 07:49 Chemistry Test 06/24/24 07:49 Albumin 3.2 g/dL (3.2-4.8) Calcium Level 9.1 mg/dL (8.7-10.4) Total Protein 5.4 g/dL (5.7-8.2) L Coagulation Test 06/24/24 16:06 Prothrombin Time 13.1 sec (9.3-11.8) H Prothrombin Time INR 1.26 (0.9-1.15) H LFT Test 06/24/24 07:49 Alanine Aminotransferase (ALT) 29 U/L (7-40) Alkaline Phosphatase 298 U/L (46-116) H Aspartate Amino Transferase (AST) 44 U/L (13-40) H Total Bilirubin 0.7 mg/dL (0.2-1.0) Urinalysis Test 06/21/24 17:00 Urine Color Yellow (Yellow) Urine Clarity Turbid (Clear) H Urine pH 6.0 (5.0-9.0) Urine Specific [place] 1.020 (1.001-1.035) Urine Protein 1+ (Negative) H Urine Ketones 1+ (Negative) H Urine Blood Trace /uL (Negative) H Urine Nitrite Negative (Negative) Urine Bilirubin Negative (Negative) Urine Urobilinogen 2 mg/dL (Negative) H Urine Leukocyte Esterase 3+ /uL (Negative) Urine RBC 6 /hpf (0 - 4) Urine WBC 26 /hpf (0 - 5) Urine Squamous Epithelial Cells Few /hpf (<5) Urine Bacteria Few /hpf (None Seen) H Urine Hyaline Casts Few /lpf (0 - 2) Urine Mucus Few (None Seen) Urine Glucose Normal mg/dL (Normal) Microbiology Microbiology Date/Time Source Procedure Growth Status 06/23/24 11:30 Blood Blood Culture - Preliminary NO GROWTH AFTER 24 HOURS OF INCUBATION. Resulted Labs and/or images reviewed: Labs reviewed by me, Image(s) reviewed by me Assessment/Plan Assessment/Plan 06/24 no further worsening. minimally following commands. POA wants to hold off chemo port insertion. Multi embolic CVA, Acute on chronic vision changes Acute blurry vision Visual field deficits left nasal hemianopia. -patient presenting with acute on chronic vision change. She has ongoing blurry vision, 4 days ago she had acute change and is having gait difficulty with this changes. On exam noted to have left nasal hemianopia. -CT abdomen without any acute process, CT head without any intracranial bleed. -MRI brain w/wo 06/22 - Multiple foci of restricted diffusion bilaterally seen in the peripheral vascular distribution such as the bilateral cerebellar hemispheres, bilateral occipital lobes, and small areas scattered throughout the cortex of the bilateral cerebral hemispheres. This distribution of findings are concerning for septic emboli. No evidence of hemorrhage, mass effect, or midline shift. No herniation. There is a curvilinear area of enhancement in the left cerebellum which appears to be adjacent to an area of restricted diffusion - repeat CT head with out infarcts evident - acute stroke worsen 06/23 early am - nuero consult advise AGAINST tPA (likely due to mri finding of emboli) - CT h/n - pending - Echo 06/22/24 - without any vegetations. - legs equal sizes - low suspicion of DVT and/or paradoxical embolic stroke. - asa plavix Lipitor - neuro consult - YUSUF recommended - card consulted for YUSUF. - BOXING PROMOTER pending. - fall precautions - PT pending Intractable Nausea -likely viral gastroenteritis versus due to vision changes, or possibly from dizziness related to the syndrome. -p.r.n. antiemetics. Clear liquid diet. Slow fluids, monitor symptoms UTI plausible - high risk, although asymptomatic. - keep ctx. pending ucx. Cancer - POA daughter wants to hold off port-a-cath for now. Diet npo DVT Lovenox subQ GI prophylaxis PPI IV daily Med tele Full code Plan discussed with: Patient My Orders Orders - ABIODUN PÉREZ MD Procedure Category Date Status Time Vancomycin 1gm/250ml PHA 06/24/24 In Process Kit 11:00 Basic Metabolic Panel LAB 06/25/24 Verified 04:00 Vancomycin Per ROSA 06/24/24 In Process Pharmacy Protoc 11:00 Vancomycin,Trough LAB 06/27/24 Verified 10:00 Date of Service: Jun 24, 2024 Billing Provider: ABIODUN PÉREZ MD Common Visit Codes: [id number] INP/OBS CARE(HIGH) ABIODUN PÉREZ MD Jun 24, 2024 19:52
[2024-06-24] MEDS: ATORVASTATIN 20 MG TAB PO SCH (21:39)
[2024-06-25] VITALS (7 sets, daily range): BP systolic 150–176; BP diastolic 67–72; PULSE 77–88; RESP 16–18; TEMP 97.8–98.5; O2SAT 93–96
--- NOTE | 2024-06-25 08:43 | DVH ---
CHEST RADIOGRAPH Indication: pre op/pain Technique: Single frontal view of the chest was obtained Comparison: None FINDINGS: Lines and Tubes: None Lungs: No focal consolidation. Pleura: No effusion. No pneumothorax. Cardiomediastinal contours: Unremarkable Bones: No acute osseous abnormality. IMPRESSION: No acute cardiopulmonary disease.
[2024-06-25 14:42] LABS: Basophils # (auto) 0.1 10 ^3/uL (0-0.2); Basophils % (auto) 0.7 % (0.0-2.0); Eosinophils # (auto) 0.1 10 ^3/uL (0-0.8); Eosinophils % (auto) 0.8 % (0.0-7.0); Hematocrit 35.7 % (36.0-46.0); Lymphocytes # (auto) 0.7 10 ^3/uL (0.4-5.4); Lymphocytes % (auto) 6.9 % (10.0-50.0); Mean Corpuscular Hemoglobin 30.7 pg (28.0-32.0); Mean Corpuscular Hgb Conc. 33.6 g/dL (32.0-36.0); Mean Corpuscular Volume 91.3 fL (80.0-100.0); Monocytes # (auto) 0.8 10 ^3/uL (0-1.3); Monocytes % (auto) 7.8 % (0.0-12.0); Neutrophils # (auto) 9.1 10 ^3/uL (1.6-8.6); Neutrophils % (auto) 83.8 % (37.0-80.0); Platelet Count (auto) 228 10^3/uL (140-450); Red Blood Cells 3.91 10^6/uL (4.0-5.20); Red Cell Distribution Width 13.9 % (11.8-14.3); White Blood Cell 10.8 10^3/uL (4.4-10.8)
[2024-06-25 14:50] LABS: Anion Gap 9 (5-15); Carbon Dioxide 24 mmol/L (20-31); Chloride 104 mmol/L (98-107); Potassium 3.6 mmol/L (3.5-5.1); Sodium 137 mmol/L (136-145)
[2024-06-25 14:56] LABS: BUN/Creatinine Ratio 15.6 (10.0-20.0); Blood Urea Nitrogen 12 mg/dL (9-23)
[2024-06-25 14:59] LABS: Glucose 138 mg/dL (74-106)
--- NOTE | 2024-06-25 19:23 | DVHPN2 ---
Subjective 06/25 - some improvement today. working on ways to communicate. plan for YUSUF tomorrow. COMPLEX DIRECTOR, PT, Neuro following. cardiology to help with YUSUF tomorrow. 06/24 no further worsening. minimally following commands. POA wants to hold off chemo port insertion. 06/23-patient had acute changes overnight. Developing dysarthria, slurring of speech. Evaluated by nocturnal hospitalist. Blue justyn Neurology consulted. TPA was not recommended. MRI showing multiple embolic like strokes. Continuing treatment with aspirin, we will add Plavix. PT OT and speech recommended. Patient is unable to communicate now. Unable to get any ROS. She was also not writing on a pad due to poor vision. unable to communicate 06/22 patient continues to have blurry vision which is acute on chronic. On exam noted to have left nasal hemianopia. This appears to be acute. 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 CT abdomen without any acute process, CT head without any intracranial bleed. Reviewed: Care Plan, H&P Changes from previous H/P or p: No Changes General: Per HPI Objective Vitals Vital Signs Date Time Temp Pulse Resp B/P (MAP) Pulse Ox O2 Delivery O2 Flow Rate FiO2 06/25/24 17:00 97.8 85 16 156/72 (100) 93 97.8 06/25/24 08:00 Room Air* 0 21 Intake/Output Intake and Output 06/25/24 07:00 Intake Total 525 ml Balance 525 ml Intake Oral 225 ml IV Total 300 ml # Voids 5 Exam GEN: Healthy appearing, well-developed, NAD. HEENT: NC/AT; MMM. CV: RRR, no m/r/g. LUNGS: CTAB, no w/r/c. ABD: Soft, NT/ND, NBS, no masses or organomegaly. EXT: skin Warm, well perfused. no rashes. No clubbing, cyanosis, or edema. NEURO: Ambulating with no limitations. Left nasal hemianopia,, later has aphasia/dysarthria. Right facial droop. Right upper extremity weakness (weak wrist/ahdn, but arm now moving),,. Unable to completely evaluate for sensation, but appears sensation is intact. Unable to evaluate for facial sensation. Medications Current Medications Medications Dose Ordered Sig/Varsha Route Start Time Stop Time Status Last Admin Dose Admin Sodium Chloride 1,000 ml @ 60 mls/hr [id number] IV 06/21/24 15:15 06/23/24 17:23 60 MLS/HR Ondansetron HCl 4 mg Q4HP PRN IV 06/21/24 15:15 06/22/24 19:53 4 MG Docusate Sodium 100 mg BIDPRN PRN PO 06/21/24 15:15 06/22/24 21:25 100 MG Enoxaparin Sodium 40 mg DAILY SC 06/22/24 10:00 06/24/24 11:39 40 MG Acetaminophen 650 mg Q6HP PRN PO 06/21/24 15:15 Morphine Sulfate 2 mg Q4HPRN PRN IV 06/21/24 15:15 06/22/24 08:52 2 MG Morphine Sulfate 30 mg Q12HR PO 06/22/24 22:00 06/24/24 11:34 30 MG Hydromorphone HCl 2 mg Q4HP PRN PO 06/22/24 10:45 06/25/24 17:23 2 MG Vancomycin HCl 0 ml @ 0 mls/hr UD IV 06/23/24 09:00 Cefepime HCl 50 ml @ 12.5 mls/hr Q12HR IV 06/23/24 21:00 06/25/24 12:30 12.5 MLS/HR Aspirin 81 mg DAILY PO 06/24/24 10:00 06/24/24 11:33 81 MG Atorvastatin Calcium 40 mg HS PO 06/24/24 22:00 06/24/24 21:39 40 MG Hydralazine HCl 10 mg Q6HP PRN IV 06/23/24 13:15 Clopidogrel Bisulfate 75 mg DAILY PO 06/24/24 10:00 06/24/24 11:34 75 MG Vancomycin HCl 250 ml @ 250 mls/hr DAILY IV 06/24/24 11:00 06/25/24 11:07 250 MLS/HR Laboratory Results Laboratory Tests 06/25/24 14:01 Chemistry Test 06/25/24 14:01 Calcium Level 9.0 mg/dL (8.7-10.4) Urinalysis Test 06/21/24 17:00 Urine Color Yellow (Yellow) Urine Clarity Turbid (Clear) H Urine pH 6.0 (5.0-9.0) Urine Specific [place] 1.020 (1.001-1.035) Urine Protein 1+ (Negative) H Urine Ketones 1+ (Negative) H Urine Blood Trace /uL (Negative) H Urine Nitrite Negative (Negative) Urine Bilirubin Negative (Negative) Urine Urobilinogen 2 mg/dL (Negative) H Urine Leukocyte Esterase 3+ /uL (Negative) Urine RBC 6 /hpf (0 - 4) Urine WBC 26 /hpf (0 - 5) Urine Squamous Epithelial Cells Few /hpf (<5) Urine Bacteria Few /hpf (None Seen) H Urine Hyaline Casts Few /lpf (0 - 2) Urine Mucus Few (None Seen) Urine Glucose Normal mg/dL (Normal) Microbiology Microbiology Date/Time Source Procedure Growth Status 06/23/24 11:30 Blood Blood Culture - Preliminary NO GROWTH AFTER 48 HOURS OF INCUBATION. Resulted Labs and/or images reviewed: Labs reviewed by me, Image(s) reviewed by me Assessment/Plan Assessment/Plan 06/25 - some improvement today. working on ways to communicate. plan for YUSUF tomorrow. COMPLEX DIRECTOR, PT, Neuro following. cardiology to help with YUSUF tomorrow. Multi embolic CVA, Acute on chronic vision changes Acute blurry vision Visual field deficits left nasal hemianopia. -patient presenting with acute on chronic vision change. She has ongoing blurry vision, 4 days ago she had acute change and is having gait difficulty with this changes. On exam noted to have left nasal hemianopia. -CT abdomen without any acute process, CT head without any intracranial bleed. -MRI brain w/wo 06/22 - Multiple foci of restricted diffusion bilaterally seen in the peripheral vascular distribution such as the bilateral cerebellar hemispheres, bilateral occipital lobes, and small areas scattered throughout the cortex of the bilateral cerebral hemispheres. This distribution of findings are concerning for septic emboli. No evidence of hemorrhage, mass effect, or midline shift. No herniation. There is a curvilinear area of enhancement in the left cerebellum which appears to be adjacent to an area of restricted diffusion - repeat CT head with out infarcts evident - acute stroke worsen 06/23 early am - nuero consult advise AGAINST tPA (likely due to mri finding of emboli) - CT h/n - pending - Echo 06/22/24 - without any vegetations. - legs equal sizes - low suspicion of DVT and/or paradoxical embolic stroke. - asa plavix Lipitor - neuro consult - YUSUF recommended - card consulted for YUSUF. - COMPLEX DIRECTOR rec puree slow feeds - PT still working with patient - good progress - fall precautions Intractable Nausea -likely viral gastroenteritis versus due to vision changes, or possibly from dizziness related to the syndrome. -p.r.n. antiemetics. Clear liquid diet. Slow fluids, monitor symptoms UTI plausible - high risk, although asymptomatic. - keep ctx. pending ucx. Cancer - POA daughter wants to hold off port-a-cath for now. Diet puree DVT Lovenox subQ GI prophylaxis PPI IV daily Med tele Full code Plan discussed with: Patient My Orders Orders - ABIODUN PÉREZ MD Procedure Category Date Status Time Chest Xray 1 View XY 06/25/24 Resulted 07:27 Pureed DIET 06/25/24 Transmitted Dinner Date of Service: Jun 25, 2024 Billing Provider: ABIODUN PÉREZ MD Common Visit Codes: 01385-[id number] INP/OBS CARE(HIGH) ABIODUN PÉREZ MD Jun 25, 2024 19:23
--- NOTE | 2024-06-25 21:17 | DVHPN2 ---
Progress Note - Dictate Date Seen: Jun 25, 2024 Medical Necessity Reason Pt with a Central, PICC or Fol: No Subjective Ms. Roberts is a 73 years old right-handed female with a history of pancreatitis, bile bladder cancer, pancreatic cancer, the patient was admitted to the [facility] on 06/21/2024 with a chief company of abdominal pain, nausea, vomiting, but the patient also has other medical problems I have seen and examined the patient, I have discussed with her nurse, grandson in the room. Her grandson claimed the patient was able to talk better but not confirmed on my physical examination She was upset because the YUSUF was not done today No new complaints Cardiology input appreciated Urinalysis, 06/21/2024: WBC: 26, urine leukocyte esterase: 3+ CBC, 06/23/2024: Unremarkable PT/INR/PTT, 06/23/2024: 12.4/1.18/29.8 CMP, 06/23/2024: ALT: 57 TG/HDL/LDL/HDL, 06/23/2024: 71/128/55/55 ECG, 06/23/2024: Sinus rhythm Echocardiogram, 06/23/2024: The study is technically limited. Normal left ventricular size and systolic function. Ejection fraction is estimated at 65%. Normal right ventricular size and systolic function. Uusc-sd-emjuhqfq aortic insufficiency. Lvlb-ft-sdcnhpbi mitral annular calcification with no significant stenosis. No pericardial effusion. PA systolic pressure is estimated at [address] head, 06/22/2024: 1. Multiple areas of decreased attenuation in the right and left cerebellar hemispheres consistent with multiple old infarcts. 2. Area of decreased attenuation of the left posterior parietal occipital lobe consistent with areas of old infarct CT head, 06/23/24: Unchanged scattered areas of hypoattenuation in the occipital lobes and bilateral cerebellar hemispheres. No significant interval change. No evidence of intracranial hemorrhage, mass effect, midline shift, or herniation. No hydrocephalus. Please refer to same day MRI brain for further details CTA head, neck, 06/24/24: 1. No evidence of acute intracranial hemorrhage, mass effect or hydrocephalus. Chronic microvascular ischemic changes 2. No evidence of hemodynamically significant intracranial stenosis, proximal occlusion or aneurysm. 3. No evidence of hemodynamically significant cervical stenosis or dissection MRI head, 06/23/24: Multiple foci of restricted diffusion bilaterally seen in the peripheral vascular distribution such as the bilateral cerebellar hemispheres, bilateral occipital lobes, and small areas scattered throughout the cortex of the bilateral cerebral hemispheres. This distribution of findings are concerning for septic emboli. No evidence of hemorrhage, mass effect, or midline shift. No herniation. There is a curvilinear area of enhancement in the left cerebellum which appears to be adjacent to an area of restricted diffusion. This is less likely metastatic disease and may be due to focal area of hypoperfusion or vascular malformation. Attention on follow-up is recommend vital signs Vital Sign Date Time Temp Pulse Resp B/P (MAP) Pulse Ox O2 Delivery O2 Flow Rate FiO2 06/25/24 17:00 97.8 85 16 156/72 (100) 93 97.8 06/25/24 08:00 Room Air* 0 21 Total Intake and Output 06/24/24 06/24/24 06/25/24 15:00 23:00 07:00 Intake Total 250 ml 225 ml 50 ml Balance 250 ml 225 ml 50 ml medications Current Medications Medications Dose Ordered Sig/Varsha Route Start Time Stop Time Status Last Admin Dose Admin Sodium Chloride 1,000 ml @ 60 mls/hr [id number] IV 06/21/24 15:15 06/23/24 17:23 60 MLS/HR Ondansetron HCl 4 mg Q4HP PRN IV 06/21/24 15:15 06/22/24 19:53 4 MG Docusate Sodium 100 mg BIDPRN PRN PO 06/21/24 15:15 06/22/24 21:25 100 MG Enoxaparin Sodium 40 mg DAILY SC 06/22/24 10:00 06/24/24 11:39 40 MG Acetaminophen 650 mg Q6HP PRN PO 06/21/24 15:15 Morphine Sulfate 2 mg Q4HPRN PRN IV 06/21/24 15:15 06/22/24 08:52 2 MG Morphine Sulfate 30 mg Q12HR PO 06/22/24 22:00 06/24/24 11:34 30 MG Hydromorphone HCl 2 mg Q4HP PRN PO 06/22/24 10:45 06/25/24 17:23 2 MG Vancomycin HCl 0 ml @ 0 mls/hr UD IV 06/23/24 09:00 Cefepime HCl 50 ml @ 12.5 mls/hr Q12HR IV 06/23/24 21:00 06/25/24 12:30 12.5 MLS/HR Aspirin 81 mg DAILY PO 06/24/24 10:00 06/24/24 11:33 81 MG Atorvastatin Calcium 40 mg HS PO 06/24/24 22:00 06/24/24 21:39 40 MG Hydralazine HCl 10 mg Q6HP PRN IV 06/23/24 13:15 Clopidogrel Bisulfate 75 mg DAILY PO 06/24/24 10:00 06/24/24 11:34 75 MG Vancomycin HCl 250 ml @ 250 mls/hr DAILY IV 06/24/24 11:00 06/25/24 11:07 250 MLS/HR objective General: the patient is well developed and nourished. No acute distress. MENTAL STATUS: Awake and alert. Oriented to person, place, she knows the year SPEECH, LANGUAGE, HIGHER CORTICAL FUNCTION: She was speaks minimally, she was expressive aphasia, possible comprehensive aphasia CRANIAL NERVES: Left homonymous hemianopsia. Pupils are equal, round and reactive. EOMs full and conjugate. No nystagmus. Facial sensation intact in all three divisions bilaterally. Mild right facial weakness of upper motor neuron pattern SENSATION: Sensation to touch and pinprick is normal. MOTOR: Normal tone in the upper and lower extremity. Normal muscle bulk. No fasciculations. No abnormal movements or posturing. Muscle strength of the major groups in the upper left extremities is 5/5. Muscle strength of the major groups in the right extremities is: Upper: 3-4/5, lower: 4-5/5. REFLEXES: Deep tendon reflexes are symmetrical. No pathological reflexes. CEREBELLAR/COORDINATION: No ataxia in the left arm laboratory and microbiology Laboratory Tests 06/25/24 14:01 Test 06/25/24 14:01 Range/Units Serum Glucose 138 H 74-106 mg/dL Problem List Multiple acute strokes Recurrent strokes Aphasia, secondary to multiple strokes Right hemiparesis, secondary to multiple strokes Right homonymous hemianopsia, secondary to multiple strokes ? Hypercoagulopathy Pancreatic cancer Gallbladder cancer Assessment/Plan Monitoring Supportive treatment Telemetry PT/INR/PTT YUSUF Aspirin 81 mg daily Clopidogrel 75 mg daily Lipitor 40 mg daily DVT prophylaxis Communication board Dr. Negron on case Cardiology on case More recommendation per clinical course This medical document was created using an electronic medical record system with [employer] dictation system. Although this document has been carefully reviewed, there may still be some phonetic and typographical erro Prognosis poor Plan discussed with: Other REYNOLD HAYDEN MD Jun 25, 2024 21:17
[2024-06-26] VITALS (13 sets, daily range): BP systolic 153–183; BP diastolic 72–97; PULSE 80–101; RESP 17–23; TEMP 97.4–98.2; O2SAT 94–99
[2024-06-26] MEDS: LIDOCAINE VISCOUS 2% 15ML UD PO ONE (08:00)
[2024-06-26 08:04] LABS: Basophils # (auto) 0.1 10 ^3/uL (0-0.2); Basophils % (auto) 0.6 % (0.0-2.0); Eosinophils # (auto) 0.1 10 ^3/uL (0-0.8); Eosinophils % (auto) 1.2 % (0.0-7.0); Hematocrit 36.3 % (36.0-46.0); Lymphocytes # (auto) 0.8 10 ^3/uL (0.4-5.4); Lymphocytes % (auto) 7.4 % (10.0-50.0); Mean Corpuscular Hemoglobin 29.7 pg (28.0-32.0); Mean Corpuscular Hgb Conc. 33.1 g/dL (32.0-36.0); Mean Corpuscular Volume 89.8 fL (80.0-100.0); Monocytes % (auto) 9.2 % (0.0-12.0); Neutrophils # (auto) 9.3 10 ^3/uL (1.6-8.6); Neutrophils % (auto) 81.6 % (37.0-80.0); Nucleated Red Blood Cells % 0.1 %; Platelet Count (auto) 269 10^3/uL (140-450); Red Blood Cells 4.05 10^6/uL (4.0-5.20); White Blood Cell 11.4 10^3/uL (4.4-10.8)
[2024-06-26 08:17] LABS: Alanine Aminotransferase 29 U/L (7-40); Albumin 3.7 g/dL (3.2-4.8); Anion Gap 9 (5-15); BUN/Creatinine Ratio 11.5 (10.0-20.0); Bilirubin, Total 0.9 mg/dL (0.2-1.0); Blood Urea Nitrogen 9 mg/dL (9-23); Calcium 9.4 mg/dL (8.7-10.4); Carbon Dioxide 25 mmol/L (20-31); Chloride 102 mmol/L (98-107); Total Protein 6.3 g/dL (5.7-8.2)
[2024-06-26 08:26] LABS: Alkaline Phosphatase 368 U/L (46-116); Aspartate Aminotransferase 49 U/L (13-40); Glucose 142 mg/dL (74-106); Potassium 3.2 mmol/L (3.5-5.1); Sodium 136 mmol/L (136-145)
[2024-06-26] MEDS: hydrALAZINE HCL 20 MG/ML VL IV PRN (08:36)
[2024-06-26] MEDS: fentaNYL CITRATE 100 MCG/2 ML VL IV ONE (08:45)
[2024-06-26] MEDS: MIDAZOLAM HCL 2MG/2ML 2ml VIAL (1mg/ml) IV ONE (08:45)
--- NOTE | 2024-06-26 09:29 | DVHOP2 ---
Operative Report - 2 Report Details Date: 06/26/24 Preop Diagnosis: TIAs. Postop Diagnosis: No discernible thrombi. Normal echo Surgeon: Jonathan Giordano MD Anesthesiologist: Conscious sedation Anesthesia: Mac, Local Consent: The patient was informed of the risks and benefits of the procedure. These include but are not limited to complications of anesthesia, postoperative infection, incomplete relief of symptoms, recurrence of symptoms, damage to bloo d vessels, nerves and tendons, deep venous thrombosis, pulmonary embolism and possible need for repeat surgery in the future. Complications: No complications Findings: Normal echocardiogram Indications for Surgery: TIAs Name of Procedure Performed Transesophageal echocardiogram Procedure Details Procedure Details: Prior full informed consent obtained the patient was prepped and draped in the usual fashion placed in the semi-Philippe and left lateral position. The patient had lidocaine gel for local anesthesia and conscious sedation given intravenously. A transesophageal probe was passed without difficulty. Standard views were obtained. Transgastric views were obtained. No complications. Findings: Technically good study. Sinus rhythm. Mild concentric LVH. Normal chamber sizes. Valves appear to be structurally normal. No significant calcification and/ or degeneration of the mitral aortic pulmonic or tricuspid valves. The aortic root was within normal limits. The atrial septum and ventricular septum are intact without evidence for lack of integrity or structural anomalies. Left ventricular systolic performance is preserved at 55% approximately. Normal right ventricular function. No significant regional wall motion abnormalities discernible. Mild aortic insufficiency. Mild mitral and tricuspid regurgitation noted. No atrial septal defects or ventricular septal defects noted by Doppler. No pericardial effusion noted. No intracardiac masses thrombi or vegetations discernible. The atrial appendage was clearly visualized without thrombi present. The pulmonary veins were also within normal limits without structure or other abnormalities noted. The ascending aorta appeared calcified. The descending aorta. Calcified. Increased reverberation due to calcium noted. Transgastric views were unremarkable. Condition Good Disposition Still a Patient Date of Service: Jun 26, 2024 Billing Provider: JONATHAN GIORDANO Sr., MD Cardiology Common Codes: 97650-[id number] INP/OBS CARE (High) Cardiology Procedure Codes: 14416-SCA W/IMG DOC INCL PROB ACQ JONATHAN GIORDANO Sr., MD Jun 26, 2024 09:29
[2024-06-26] MEDS: cefTRIAXone 1GM/50ML D5W 50 ML IV SCH (10:49)
[2024-06-26] MEDS ORDERED: ASPI1TAB19 PO (14:50)
[2024-06-26] MEDS ORDERED: ATOR40TA52 PO (14:50)
[2024-06-26] MEDS ORDERED: CLOP75TA28 PO (14:50)
--- NOTE | 2024-06-26 14:53 | DVHDS2 ---
Discharge Summary Date of Admission Jun 21, 2024 at 15:13 Date of Discharge: Jun 26, 2024 Labs/Diagnostic Data: Laboratory Results Test 06/26/24 07:15 06/24/24 16:06 06/24/24 07:49 06/23/24 09:12 White Blood Count 11.4 10^3/uL (4.4-10.8) Red Blood Count 4.05 10^6/uL (4.0-5.20) Hemoglobin 12.0 g/dL (12.2-16.2) Hematocrit 36.3 % (36.0-46.0) Mean Corpuscular Volume 89.8 fL (80.0-100.0) Mean Corpuscular Hemoglobin 29.7 pg (28.0-32.0) Mean Corpuscular Hemoglobin Concent 33.1 g/dL (32.0-36.0) Red Cell Distribution Width 14.0 % (11.8-14.3) Platelet Count 269 10^3/uL (140-450) Mean Platelet Volume 7.9 fL (6.9-10.8) Neutrophils (%) (Auto) 81.6 % (37.0-80.0) Lymphocytes (%) (Auto) 7.4 % (10.0-50.0) Monocytes (%) (Auto) 9.2 % (0.0-12.0) Eosinophils (%) (Auto) 1.2 % (0.0-7.0) Basophils (%) (Auto) 0.6 % (0.0-2.0) Neutrophils # (Auto) 9.3 10 ^3/uL (1.6-8.6) Lymphocytes # (Auto) 0.8 10 ^3/uL (0.4-5.4) Monocytes # (Auto) 1.0 10 ^3/uL (0-1.3) Eosinophils # (Auto) 0.1 10 ^3/uL (0-0.8) Basophils # (Auto) 0.1 10 ^3/uL (0-0.2) Nucleated Red Blood Cells 0.1 % Sodium Level 136 mmol/L (136-145) Potassium Level 3.2 mmol/L (3.5-5.1) Chloride Level 102 mmol/L (98-107) Carbon Dioxide Level 25 mmol/L (20-31) Anion Gap 9 (5-15) Blood Urea Nitrogen 9 mg/dL (9-23) Creatinine 0.78 mg/dL (0.550-1.02) Glomerular Filtration Rate Calc 80 mL/min (>90) BUN/Creatinine Ratio 11.5 (10.0-20.0) Serum Glucose 142 mg/dL (74-106) Calcium Level 9.4 mg/dL (8.7-10.4) Total Bilirubin 0.9 mg/dL (0.2-1.0) Aspartate Amino Transferase (AST) 49 U/L (13-40) Alanine Aminotransferase (ALT) 29 U/L (7-40) Alkaline Phosphatase 368 U/L (46-116) Total Protein 6.3 g/dL (5.7-8.2) Albumin 3.7 g/dL (3.2-4.8) Prothrombin Time 13.1 sec (9.3-11.8) Prothrombin Time INR 1.26 (0.9-1.15) Random Vancomycin Level 13.0 ug/mL (5-10) Activated Partial Thromboplast Time 29.8 SEC (24.5-34.5) Test 06/23/24 00:05 06/22/24 23:54 06/22/24 09:50 06/21/24 17:00 Triglycerides Level 71 mg/dL (< 150) Cholesterol Level 128 mg/dL (< 200) LDL Cholesterol 55 mg/dL (< 100) HDL Cholesterol 55 mg/dL (40-59) POC Glucose 134 mg/dl (70-106) Lactate Dehydrogenase 366 U/L (120-246) CA 19-9 Antigen 01552 U/mL (0-35) Urine Color Yellow (Yellow) Urine Clarity Turbid (Clear) Urine pH 6.0 (5.0-9.0) Urine Specific [place] 1.020 (1.001-1.035) Urine Protein 1+ (Negative) Urine Ketones 1+ (Negative) Urine Blood Trace /uL (Negative) Urine Nitrite Negative (Negative) Urine Bilirubin Negative (Negative) Urine Urobilinogen 2 mg/dL (Negative) Urine Leukocyte Esterase 3+ /uL (Negative) Urine RBC 6 /hpf (0 - 4) Urine WBC 26 /hpf (0 - 5) Urine Squamous Epithelial Cells Few /hpf (<5) Urine Bacteria Few /hpf (None Seen) Urine Hyaline Casts Few /lpf (0 - 2) Urine Mucus Few (None Seen) Urine Glucose Normal mg/dL (Normal) Test 06/21/24 15:42 Lactic Acid Level 1.2 mmol/L (0.4-2.0) Lipase 26 U/L (12-53) Other Laboratory Tests 06/26/24 07:15 Brief Hx & Hospital Course: HPI: 73-year-old female with 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 Patient reports that the blurred vision occurred 2 days ago and happened suddenly while she was at home in bed. Patient states that she can see images from a far distance however not close in distance. Patient reports that she is able to see darker colored images versus prop cutter colors. Patient states that she was at [facility] and [facility], received PET scans outpatient and also at [facility] for admissions for the same problem. Daughter reports that the patient had a marginal scrape done at [facility] Marcio Richard and had a stent placed in the bile duct because the patient's mass was compressing against the bile duct and caused the patient jaundice. Patient's daughter states that she was just recently at [facility] for imaging that was done on her abdomen and pelvis. Patient reports that she has an oncologist appointment on July 01, 2024 at [place]. However, due to the increasing amount of pain in her abdomen,she is here for evaluation. Patient also reports that she was constipated and she has not had a bowel movement in 3 days. She also reports that she does not have the appetite to eat. Patient reports that she was diagnosed with pancreatic cancer in September of 2023. Patient presenting with acute on chronic vision change and abdominal fullness. She has ongoing blurry vision, 4 days ago she had acute change and is having gait difficulty with this changes. On exam noted to have left nasal hemianopia. CT abdomen without any acute process, CT head without any intracranial bleed. MRI brain w/wo 06/22 done to evaluate stroke and also mets, shows: Multiple foci in multiple areas including BL cerebellum, BL occipital lobes, and small areas scattered throughout the BL cerebral cortex, concerning for septic emboli. d uring 2nd night patient has acute worsening and develops aphasia/dysarthria, R UE weakness and numbness, R facial droop. repeat CT head with out infarcts evident. acute stroke worsen 1/6 early am, tele nuero consult advise AGAINST tPA (likely due to mri finding of emboli). CT h/n without any vascular thrombi or occlusions. TTE Echo 06/22/24 - without any vegetations. in-house neuro rec YUSUF echo, done 06/26/24 and w/o cardiac thrombi or valvular vegetations. Bcx remained ngtd 72hr, dukes criteria negative/low. legs equal sizes - low suspicion of DVT and/or paradoxical embolic stroke. patient does well with PT (30-40feet, full weight bearing, no ataxia or falls). HAND RUG CLEANER recommends puree diet. Appears patient will need some assistance at home with feeding and possible night time bathroom assistance. will need Homehealth and safer to dc to patients sons house in [place]. stroke source likely microvascular thrombosis from hypercoagulable state from cancer versus cardiac/vascular thrombi ruled out and less likely but still may need outpatient cardiac following for holter vs event monitor. Patient will get outpatient bowel regimen for constipation as likely cause of abdominal fullness. LUE inserted midline , resulting some bruising, L UE dvt study w/o/ hematoma or DVT. patient had dirty UA, was given broad spectrum abx vanc/cefepime > ceftriaxone, total 5 days and asymptomatic at discharge. VSS, neuro and onco cleared. Safe to discharge with plan below. Diagnosis: acute embolic stroke, cerebrum cerebellar occupital; multiple acute strokes; thromboembolic stroke, no source found, likely due to prothombotic state secondary to cancer; ruled out bacterial endocarditis; Aphasia, secondary to multiple strokes, resolving; Right hemiparesis, secondary to multiple strokes, resolving; current cancer diagnosis, pancreatic and gallbladder, ongoing treatment; Hypercoagulable state; Discharge plan: - continue aspirin 81mg and lipitor 40mg daily - plavix 75 daily for x 3 months - f/u with oncology outpatient and outpatient port insertion - referral to neurology - referral to cardiology for holter vs event monitor, r/o arrythmia cause of possible embolic stroke - referral to speech therapy outpatient - for medical management and Home PT - bowel regimen (lactulose 2x/day x 7 days, docusate 2x/day [id number]) - puree diet until cleared by HAND RUG CLEANER outpatient to advance - follow-up with PCP to review discharge - continue other medications not mentioned above. return to ER if symptoms worsen. Condition at Discharge: Good Final Diagnosis/Problems List acute embolic stroke, cerebrum cerebellar occupital; thromboembolic stroke, no source found, likely due to prothombotic state secondary to cancer; ruled out bacterial endocarditis; current cancer diagnsosis pancreatic and gallbladder, ongoing treatment; Discharge Disposition: Still a Patient Discharge Instruct/Medications Diet: See Comment Diet comment: puree Activity: No Restrictions, As Tolerated Follow Up/Referral: PCP, oncology, neurology, speech therapy, cardiology Medications: below Discharge Statement: "Patient was advised to return to the ER or call 911 if any headaches, dizziness, shortness of breath, chest pain, abdominal pain, bleeding, fevers, or worsening of medical condition. Patient was counseled about treatment plan, medications, possible side effects, patientverbalized understanding. All questions were answered to the best of my ability. This discharge took greater then 30 minutes in planning, reviewing documentation, counseling the patient, and discussing with other team members." ASSESSMENT ASSESSMENT Assessment acute embolic stroke, cerebrum cerebellar occupital; thromboembolic stroke, no source found, likely due to prothombotic state secondary to cancer; ruled out bacterial endocarditis; current cancer diagnsosis pancreatic and gallbladder, ongoing treatment; Date of Service: Jun 26, 2024 Billing Provider: ABIODUN PÉREZ MD Common Visit Codes: 91398-NEO/OBS DISCH DAY >30min ABIODUN PÉREZ MD Jun 26, 2024 14:53
[2024-06-26] MEDS ORDERED: DOCU-94 PO (16:36)
[2024-06-26] MEDS ORDERED: LACT10SO3 PO (16:36)
--- NOTE | 2024-06-26 16:40 | DVH ---
LEFT Upper Extremity Venous Duplex Clinical History: signi bruising L UE with uziel IV. r/o DVT, hematoma. Comparison: None Technique: Duplex Doppler evaluation of the venous system of the LEFT lower neck and upper extremity including c olor Doppler and spectral/pulsed waveform analysis was performed. Findings: The internal jugular vein demonstrates appropriate compressibility and waveform variability . The subclavian vein is patent on color Doppler evaluation without intraluminal thrombus and demonstra annie waveform variability . The visualized portion of the brachiocephalic vein is patent on color Doppler evaluation without intr aluminal thrombus and demonstrates waveform variability . The axillary vein demonstrates appropriate compressibility and waveform variability . The brachial veins demonstrate appropriate compressibility and patency on Doppler evaluation. The basilic vein demonstrates appropriate compressibility and patency on Doppler evaluation. The cephalic vein demonstrates appropriate compressibility and patency on Doppler evaluation. Impression: 1. No venous thrombus identified in the LEFT upper extremity vessels evaluated above. 2. If clinical concern/symptoms persist or worsen, short-interval follow-up study is suggested.
--- NOTE | 2024-06-26 19:39 | DVHPN2 ---
Progress Note - Dictate Date Seen: Jun 26, 2024 Medical Necessity Reason Pt with a Central, PICC or Fol: No Subjective Ms. Roberts is a 73 years old right-handed female with a history of pancreatitis, bile bladder cancer, pancreatic cancer, the patient was admitted to the [facility] on 06/21/2024 with a chief company of abdominal pain, nausea, vomiting, but the patient also has other medical problems I have seen and examined the patient, I have discussed with her nurse, family in the room. Her mood is better today, she was still has major problem to express herself, comprehension looks better No new complaints Cardiology input appreciated Urinalysis, 06/21/2024: WBC: 26, urine leukocyte esterase: 3+ CBC, 06/23/2024: Unremarkable PT/INR/PTT, 06/23/2024: 12.4/1.18/29.8 CMP, 06/23/2024: ALT: 57 TG/HDL/LDL/HDL, 06/23/2024: 71/128/55/55 ECG, 06/23/2024: Sinus rhythm YUSUF, 06/26/2024: No discernible thrombi. Normal echo Echocardiogram, 06/23/2024: The study is technically limited. Normal left ventricular size and systolic function. Ejection fraction is estimated at 65%. Normal right ventricular size and systolic function. [id number] aortic insufficiency. Koua-hj-bbsvoyry mitral annular calcification with no significant stenosis. No pericardial effusion. PA systolic pressure is estimated at [address] head, 06/22/2024: 1. Multiple areas of decreased attenuation in the right and left cerebellar hemispheres consistent with multiple old infarcts. 2. Area of decreased attenuation of the left posterior parietal occipital lobe consistent with areas of old infarct CT head, 06/23/24: Unchanged scattered areas of hypoattenuation in the occipital lobes and bilateral cerebellar hemispheres. No significant interval change. No evidence of intracranial hemorrhage, mass effect, midline shift, or herniation. No hydrocephalus. Please refer to same day MRI brain for further details CTA head, neck, 06/24/24: 1. No evidence of acute intracranial hemorrhage, mass effect or hydrocephalus. Chronic microvascular ischemic changes 2. No evidence of hemodynamically significant intracranial stenosis, proximal occlusion or aneurysm. 3. No evidence of hemodynamically significant cervical stenosis or dissection MRI head, 06/23/24: Multiple foci of restricted diffusion bilaterally seen in the peripheral vascular distribution such as the bilateral cerebellar hemispheres, bilateral occipital lobes, and small areas scattered throughout the cortex of the bilateral cerebral hemispheres. This distribution of findings are concerning for septic emboli. No evidence of hemorrhage, mass effect, or midline shift. No herniation. There is a curvilinear area of enhancement in the left cerebellum which appears to be adjacent to an area of restricted diffusion. This is less likely metastatic disease and may be due to focal area of hypoperfusion or vascular malformation. Attention on follow-up is recommend vital signs Vital Sign Date Time Temp Pulse Resp B/P (MAP) Pulse Ox O2 Delivery O2 Flow Rate FiO2 06/26/24 16:43 97.9 93 21 162/80 (107) 94 97.9 06/25/24 20:00 Room Air* 0 21 Total Intake and Output 06/25/24 06/25/24 06/26/24 15:00 23:00 07:00 Intake Total 250 ml 50 ml 250 ml Balance 250 ml 50 ml 250 ml medications Current Medications Medications Dose Ordered Sig/Varsha Route Start Time Stop Time Status Last Admin Dose Admin Sodium Chloride 1,000 ml @ 60 mls/hr [id number] IV 06/21/24 15:15 06/26/24 10:53 60 MLS/HR Ondansetron HCl 4 mg Q4HP PRN IV 06/21/24 15:15 06/22/24 19:53 4 MG Docusate Sodium 100 mg BIDPRN PRN PO 06/21/24 15:15 06/22/24 21:25 100 MG Enoxaparin Sodium 40 mg DAILY SC 06/22/24 10:00 06/26/24 10:53 40 MG Acetaminophen 650 mg Q6HP PRN PO 06/21/24 15:15 Morphine Sulfate 2 mg Q4HPRN PRN IV 06/21/24 15:15 06/22/24 08:52 2 MG Morphine Sulfate 30 mg Q12HR PO 06/22/24 22:00 06/24/24 11:34 30 MG Hydromorphone HCl 2 mg Q4HP PRN PO 06/22/24 10:45 06/25/24 21:34 2 MG Aspirin 81 mg DAILY PO 06/24/24 10:00 06/26/24 10:50 81 MG Atorvastatin Calcium 40 mg HS PO 06/24/24 22:00 06/25/24 21:33 40 MG Hydralazine HCl 10 mg Q6HP PRN IV 06/23/24 13:15 06/26/24 08:36 10 MG Clopidogrel Bisulfate 75 mg DAILY PO 06/24/24 10:00 06/26/24 10:00 75 MG Ceftriaxone Sodium 50 ml @ 100 mls/hr DAILY@09 IV 06/26/24 09:00 06/26/24 10:49 100 MLS/HR objective General: the patient is well developed and nourished. No acute distress. MENTAL STATUS: Awake and alert. Oriented to person, place, she knows the year SPEECH, LANGUAGE, HIGHER CORTICAL FUNCTION: She was speaks minimally, she was expressive aphasia, possible comprehensive aphasia CRANIAL NERVES: Left homonymous hemianopsia. Pupils are equal, round and reactive. EOMs full and conjugate. No nystagmus. Facial sensation intact in all three divisions bilaterally. Mild right facial weakness of upper motor neuron pattern SENSATION: Sensation to touch and pinprick is normal. MOTOR: Normal tone in the upper and lower extremity. Normal muscle bulk. No fasciculations. No abnormal movements or posturing. Muscle strength of the major groups in the upper left extremities is 5/5. Muscle strength of the major groups in the right extremities is: Upper: 3-4/5, lower: 4-5/5. REFLEXES: Deep tendon reflexes are symmetrical. No pathological reflexes. CEREBELLAR/COORDINATION: No ataxia in the left arm laboratory and microbiology Laboratory Tests 06/26/24 07:15 Test 06/26/24 07:15 Range/Units Serum Glucose 142 H 74-106 mg/dL Problem List Multiple acute strokes Recurrent strokes Aphasia, secondary to multiple strokes Right hemiparesis, secondary to multiple strokes Right homonymous hemianopsia, secondary to multiple strokes ? Hypercoagulopathy Pancreatic cancer Gallbladder cancer Assessment/Plan Monitoring Supportive treatment Telemetry Aspirin 81 mg daily Clopidogrel 75 mg daily Lipitor 40 mg daily DVT prophylaxis Communication board Dr. Negron on case Cardiology on case I have advised the family that the patient was follow up with a doctor for long- term cardiac monitoring More recommendation per clinical course This medical document was created using an electronic medical record system with [employer]ation system. Although this document has been carefully reviewed, there may still be some phonetic and typographical erro Prognosis poor Dietary Evaluation Review Comments: 1) Advance pt diet when medically feasible to a low fat diet 2) If pt remains NPOP > 7 days consider TPN to meet at least 75% of estimated needs 3) Continue current plan of care Expected Outcomes/Goals: 1) Pt diet to advance 2) F/U in 2-3 days Plan discussed with: Daughter, Other REYNOLD HAYDEN MD Jun 26, 2024 19:39
[2024-06-27 01:00] VITALS: BP 178/84; PULSE 82; RESP 18; TEMP 97.8; O2SAT 96
[2024-06-27] MEDS: ACETAMINOPHEN 325 MG TAB PO PRN (03:47)
[2024-06-27 08:30] VITALS: PULSE 73; PULSE 77; RESP 20; O2SAT 96
[2024-06-27 08:57] VITALS: BP 168/74; PULSE 80; RESP 16; TEMP 97.5; O2SAT 92
--- NOTE | 2024-06-27 11:52 | DVHPN2 ---
Subjective 06/26 patient RUE and speech continue to improve. family was not able to find safe place to go [place] today plan is to make room for patient in her sons home (lives in [place] vs PO blank daughter lives in [facility]) 06/25 - some improvement today. working on ways to communicate. plan for YUSUF tomorrow. MARKETING COMMUNICATIONS MANAGER, PT, Neuro following. cardiology to help with YUSUF tomorrow. 06/24 no further worsening. minimally following commands. POA wants to hold off chemo port insertion. 06/23-patient had acute changes overnight. Developing dysarthria, slurring of speech. Evaluated by nocturnal hospitalist. Blue justyn Neurology consulted. TPA was not recommended. MRI showing multiple embolic like strokes. Continuing treatment with aspirin, we will add Plavix. PT OT and speech recommended. Patient is unable to communicate now. Unable to get any ROS. She was also not writing on a pad due to poor vision. unable to communicate 06/22 patient continues to have blurry vision which is acute on chronic. On exam noted to have left nasal hemianopia. This appears to be acute. 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 CT abdomen without any acute process, CT head without any intracranial bleed. Reviewed: Care Plan, H&P Changes from previous H/P or p: No Changes General: Per HPI Objective Vitals Vital Signs Date Time Temp Pulse Resp B/P (MAP) Pulse Ox O2 Delivery O2 Flow Rate FiO2 06/27/24 08:57 97.5 80 16 168/74 (105) 92 97.5 06/26/24 20:00 Room Air* 0 21 Intake/Output Intake and Output 06/27/24 07:00 Intake Total 1030 ml Balance 1030 ml Intake Oral 930 ml IV Total 100 ml # Voids 7 Exam GEN: Healthy appearing, well-developed, NAD. HEENT: NC/AT; MMM. CV: RRR, no m/r/g. LUNGS: CTAB, no w/r/c. ABD: Soft, NT/ND, NBS, no masses or organomegaly. EXT: skin Warm, well perfused. no rashes. No clubbing, cyanosis, or edema. NEURO: Ambulating with no limitations. Left nasal hemianopia,, improving aphasia/dysarthria. improving Right facial droop. Right upper extremity weakness (weak wrist/ahdn, but arm now moving) improving,,. sensation is intact. Medications Current Medications Medications Dose Ordered Sig/Varsha Route Start Time Stop Time Status Last Admin Dose Admin Sodium Chloride 1,000 ml @ 60 mls/hr [id number] IV 06/21/24 15:15 06/26/24 10:53 60 MLS/HR Ondansetron HCl 4 mg Q4HP PRN IV 06/21/24 15:15 06/22/24 19:53 4 MG Docusate Sodium 100 mg BIDPRN PRN PO 06/21/24 15:15 06/22/24 21:25 100 MG Enoxaparin Sodium 40 mg DAILY SC 06/22/24 10:00 06/27/24 10:52 40 MG Acetaminophen 650 mg Q6HP PRN PO 06/21/24 15:15 06/27/24 11:18 650 MG Morphine Sulfate 2 mg Q4HPRN PRN IV 06/21/24 15:15 06/22/24 08:52 2 MG Morphine Sulfate 30 mg Q12HR PO 06/22/24 22:00 06/24/24 11:34 30 MG Hydromorphone HCl 2 mg Q4HP PRN PO 06/22/24 10:45 06/26/24 21:43 2 MG Aspirin 81 mg DAILY PO 06/24/24 10:00 06/27/24 10:00 81 MG Atorvastatin Calcium 40 mg HS PO 06/24/24 22:00 06/26/24 21:42 40 MG Hydralazine HCl 10 mg Q6HP PRN IV 06/23/24 13:15 06/26/24 08:36 10 MG Clopidogrel Bisulfate 75 mg DAILY PO 06/24/24 10:00 06/27/24 10:51 75 MG Ceftriaxone Sodium 50 ml @ 100 mls/hr DAILY@09 IV 06/26/24 09:00 06/27/24 10:50 100 MLS/HR Laboratory Results Laboratory Tests 06/26/24 07:15 Urinalysis Test 06/21/24 17:00 Urine Color Yellow (Yellow) Urine Clarity Turbid (Clear) H Urine pH 6.0 (5.0-9.0) Urine Specific [place] 1.020 (1.001-1.035) Urine Protein 1+ (Negative) H Urine Ketones 1+ (Negative) H Urine Blood Trace /uL (Negative) H Urine Nitrite Negative (Negative) Urine Bilirubin Negative (Negative) Urine Urobilinogen 2 mg/dL (Negative) H Urine Leukocyte Esterase 3+ /uL (Negative) Urine RBC 6 /hpf (0 - 4) Urine WBC 26 /hpf (0 - 5) Urine Squamous Epithelial Cells Few /hpf (<5) Urine Bacteria Few /hpf (None Seen) H Urine Hyaline Casts Few /lpf (0 - 2) Urine Mucus Few (None Seen) Urine Glucose Normal mg/dL (Normal) Microbiology Microbiology Date/Time Source Procedure Growth Status 06/23/24 11:30 Blood Blood Culture - Preliminary NO GROWTH AFTER 72 HOURS OF INCUBATION. Resulted Labs and/or images reviewed: Labs reviewed by me, Image(s) reviewed by me Assessment/Plan Assessment/Plan 06/26 patient RUE and speech continue to improve. family was not able to [place] today plan is to make room for patient in her sons home (lives in [place] vs [place] daughter lives in [facility]). resume discharge plan as 06/26/24 Multi embolic CVA, Acute on chronic vision changes Acute blurry vision Visual field deficits RUE weakness aphasia/dysarthria -patient presenting with acute on chronic vision change. She has ongoing blurry vision, 4 days ago she had acute change and is having gait difficulty with this changes. On exam noted to have left nasal hemianopia. -CT abdomen without any acute process, CT head without any intracranial bleed. -MRI brain w/wo 06/22 - Multiple foci of restricted diffusion bilaterally seen in the peripheral vascular distribution such as the bilateral cerebellar hemispheres, bilateral occipital lobes, and small areas scattered throughout the cortex of the bilateral cerebral hemispheres. This distribution of findings are concerning for septic emboli. No evidence of hemorrhage, mass effect, or midline shift. No herniation. There is a curvilinear area of enhancement in the left cerebellum which appears to be adjacent to an area of restricted diffusion - repeat CT head with out infarcts evident - acute stroke worsen 06/23 early am - nuero consult advise AGAINST tPA (likely due to mri finding of emboli) - CT h/n - pending - Echo 06/22/24 - without any vegetations. - YSUUF 06/26 - negative for veg/thrombi as well. - legs equal sizes - low suspicion of DVT and/or paradoxical embolic stroke. - asa plavix Lipitor - neuro consult sign off - MARKETING COMMUNICATIONS MANAGER rec puree slow feeds - PT still working with patient - good progress - fall precautions Intractable Nausea -likely viral gastroenteritis versus due to vision changes, or possibly from dizziness related to the syndrome. -p.r.n. antiemetics. Clear liquid diet. Slow fluids, monitor symptoms UTI plausible - high risk, although asymptomatic. - keep ctx. pending ucx. Cancer - POA daughter wants to hold off port-a-cath for now. - onco sign off. f/u outpt. Diet puree DVT Lovenox subQ GI prophylaxis PPI IV daily Med tele Full code resume discharge plan as 06/26/24 Plan discussed with: Patient My Orders Orders - ABIODUN PÉREZ MD Procedure Category Date Status Time Lt Upper Dvt US 06/26/24 Resulted 15:33 * Stock Dealer CONS 06/26/24 Transmitted Consult Discharge DISCHARGE 06/26/24 Transmitted 18:23 Date of Service: Jun 27, 2024 Billing Provider: ABIODUN PÉREZ MD Common Visit Codes: [id number] INP/OBS CARE(MOD) ABIODUN PÉREZ MD Jun 27, 2024 11:52
[2024-06-27 12:15] VITALS: BP 176/78; PULSE 77; RESP 20; TEMP 97.6; O2SAT 96
--- NOTE | 2024-06-27 16:41 | DVHPN2 ---
Progress Note - Dictate Date Seen: Jun 27, 2024 Medical Necessity Reason Pt with a Central, PICC or Fol: No Subjective Ms. Roberts is a 73 years old right-handed female with a history of pancreatitis, bile bladder cancer, pancreatic cancer, the patient was admitted to the [facility] on 06/21/2024 with a chief company of abdominal pain, nausea, vomiting, but the patient also has other medical problems I have seen and examined the patient, I have discussed with her nurse, family in the room. She was doing better today, she was able to speak more, otherwise no new complaints I have delivered a communication board with cartoon to her Urinalysis, 06/21/2024: WBC: 26, urine leukocyte esterase: 3+ CBC, 06/23/2024: Unremarkable PT/INR/PTT, 06/23/2024: 12.4/1.18/29.8 CMP, 06/23/2024: ALT: 57 TG/HDL/LDL/HDL, 06/23/2024: 71/128/55/55 ECG, 06/23/2024: Sinus rhythm YUSUF, 06/26/2024: No discernible thrombi. Normal echo Echocardiogram, 06/23/2024: The study is technically limited. Normal left ventricular size and systolic function. Ejection fraction is estimated at 65%. Normal right ventricular size and systolic function. [id number]-[id number]-[id number] aortic insufficiency. Mnuy-iy-ajpdgxhx mitral annular calcification with no significant stenosis. No pericardial effusion. PA systolic pressure is estimated at [address] head, 06/22/2024: 1. Multiple areas of decreased attenuation in the right and left cerebellar hemispheres consistent with multiple old infarcts. 2. Area of decreased attenuation of the left posterior parietal occipital lobe consistent with areas of old infarct CT head, 06/23/24: Unchanged scattered areas of hypoattenuation in the occipital lobes and bilateral cerebellar hemispheres. No significant interval change. No evidence of intracranial hemorrhage, mass effect, midline shift, or herniation. No hydrocephalus. Please refer to same day MRI brain for further details CTA head, neck, 06/24/24: 1. No evidence of acute intracranial hemorrhage, mass effect or hydrocephalus. Chronic microvascular ischemic changes 2. No evidence of hemodynamically significant intracranial stenosis, proximal occlusion or aneurysm. 3. No evidence of hemodynamically significant cervical stenosis or dissection MRI head, 06/23/24: Multiple foci of restricted diffusion bilaterally seen in the peripheral vascular distribution such as the bilateral cerebellar hemispheres, bilateral occipital lobes, and small areas scattered throughout the cortex of the bilateral cerebral hemispheres. This distribution of findings are concerning for septic emboli. No evidence of hemorrhage, mass effect, or midline shift. No herniation. There is a curvilinear area of enhancement in the left cerebellum which appears to be adjacent to an area of restricted diffusion. This is less likely metastatic disease and may be due to focal area of hypoperfusion or vascular malformation. Attention on follow-up is recommend vital signs Vital Sign Date Time Temp Pulse Resp B/P (MAP) Pulse Ox O2 Delivery O2 Flow Rate FiO2 06/27/24 12:15 97.6 77 20 176/78 (110) 96 97.6 06/26/24 20:00 Room Air* 0 21 Total Intake and Output 06/26/24 06/26/24 06/27/24 15:00 23:00 07:00 Intake Total 100 ml 580 ml 350 ml Balance 100 ml 580 ml 350 ml medications Current Medications Medications Dose Ordered Sig/Varsha Route Start Time Stop Time Status Last Admin Dose Admin Sodium Chloride 1,000 ml @ 60 mls/hr [id number] IV 06/21/24 15:15 06/26/24 10:53 60 MLS/HR Ondansetron HCl 4 mg Q4HP PRN IV 06/21/24 15:15 06/22/24 19:53 4 MG Docusate Sodium 100 mg BIDPRN PRN PO 06/21/24 15:15 06/22/24 21:25 100 MG Enoxaparin Sodium 40 mg DAILY SC 06/22/24 10:00 06/27/24 10:52 40 MG Acetaminophen 650 mg Q6HP PRN PO 06/21/24 15:15 06/27/24 11:18 650 MG Morphine Sulfate 2 mg Q4HPRN PRN IV 06/21/24 15:15 06/22/24 08:52 2 MG Morphine Sulfate 30 mg Q12HR PO 06/22/24 22:00 06/24/24 11:34 30 MG Hydromorphone HCl 2 mg Q4HP PRN PO 06/22/24 10:45 06/26/24 21:43 2 MG Aspirin 81 mg DAILY PO 06/24/24 10:00 06/27/24 10:00 81 MG Atorvastatin Calcium 40 mg HS PO 06/24/24 22:00 06/26/24 21:42 40 MG Hydralazine HCl 10 mg Q6HP PRN IV 06/23/24 13:15 06/26/24 08:36 10 MG Clopidogrel Bisulfate 75 mg DAILY PO 06/24/24 10:00 06/27/24 10:51 75 MG Ceftriaxone Sodium 50 ml @ 100 mls/hr DAILY@09 IV 06/26/24 09:00 06/27/24 10:50 100 MLS/HR objective General: the patient is well developed and nourished. No acute distress. MENTAL STATUS: Awake and alert. Oriented to person, place, she knows the year SPEECH, LANGUAGE, HIGHER CORTICAL FUNCTION: She was speaks minimally, she was expressive aphasia, possible comprehensive aphasia CRANIAL NERVES: Left homonymous hemianopsia. Pupils are equal, round and reactive. EOMs full and conjugate. No nystagmus. Facial sensation intact in all three divisions bilaterally. Mild right facial weakness of upper motor neuron pattern SENSATION: Sensation to touch and pinprick is normal. MOTOR: Normal tone in the upper and lower extremity. Normal muscle bulk. No fasciculations. No abnormal movements or posturing. Muscle strength of the major groups in the upper left extremities is 5/5. Muscle strength of the major groups in the right extremities is: Upper: 3-4/5, lower: 4-5/5. REFLEXES: Deep tendon reflexes are symmetrical. No pathological reflexes. CEREBELLAR/COORDINATION: No ataxia in the left arm laboratory and microbiology Laboratory Tests 06/26/24 07:15 Test 06/26/24 07:15 Range/Units Serum Glucose 142 H 74-106 mg/dL Problem List Multiple acute strokes Recurrent strokes Aphasia, secondary to multiple strokes Right hemiparesis, secondary to multiple strokes Right homonymous hemianopsia, secondary to multiple strokes ? Hypercoagulopathy Pancreatic cancer Gallbladder cancer Assessment/Plan Monitoring Supportive treatment Telemetry Aspirin 81 mg daily Clopidogrel 75 mg daily Lipitor 40 mg daily DVT prophylaxis Communication board Dr. Negron on case Cardiology on case I have advised the family that the patient was follow up with a doctor for long- term cardiac monitoring More recommendation per clinical course This medical document was created using an electronic medical record system with [employer] system. Although this document has been carefully reviewed, there may still be some phonetic and typographical erro Prognosis poor Dietary Evaluation Review Comments: 1) Advance pt diet when medically feasible to a low fat diet 2) If pt remains NPOP > 7 days consider TPN to meet at least 75% of estimated needs 3) Continue current plan of care Expected Outcomes/Goals: 1) Pt diet to advance 2) F/U in 2-3 days Plan discussed with: Patient, Other ERYNOLD HAYDEN MD Jun 27, 2024 16:41
[2024-06-27 17:06] VITALS: BP 179/71; PULSE 80; RESP 19; TEMP 97.6; O2SAT 98
== END 2024-06-27 17:32 | disposition home health service (06) | DRG 65 ==
LOC: EDBD 09:22 → ER 09:22 → OVERFLOW 15:13 → WEST WING 22:03 → CENTRAL 06-22 00:45 → TELE-CENTR 06-25 20:37
PROVIDERS: ADMIT Student in an Organized Health Care Education/Training Program; ATTEND Student in an Organized Health Care Education/Training Program
PROC: 05HA33Z Insertion of Infusion Device into Left Brachial Vein, Percutaneous Approach (ICD-10-PCS; principal; 2024-06-24)
PROC: B54NZZA Ultrasonography of Left Upper Extremity Veins, Guidance (ICD-10-PCS; 2024-06-24)
PROC: B24BZZ4 Ultrasonography of Heart with Aorta, Transesophageal (ICD-10-PCS; 2024-06-26)
DX: I63.443 Cerebral infarction due to embolism of bilateral cerebellar arteries (principal); C23 Malignant neoplasm of gallbladder; C25.9 Malignant neoplasm of pancreas, unspecified; N39.0 Urinary tract infection, site not specified; D68.59 Other primary thrombophilia; D72.829 Elevated white blood cell count, unspecified; H53.8 Other visual disturbances; A08.4 Viral intestinal infection, unspecified; R29.810 Facial weakness; E11.65 Type 2 diabetes mellitus with hyperglycemia; E66.9 Obesity, unspecified; H54.3 Unqualified visual loss, both eyes; I10 Essential (primary) hypertension; F41.9 Anxiety disorder, unspecified; Z68.30 Body mass index [BMI] 30.0-30.9, adult; Z86.73 Personal history of transient ischemic attack (TIA), and cerebral infarction without residual deficits; Z90.49 Acquired absence of other specified parts of digestive tract; Z85.09 Personal history of malignant neoplasm of other digestive organs; Z85.07 Personal history of malignant neoplasm of pancreas; Z90.710 Acquired absence of both cervix and uterus; Z80.3 Family history of malignant neoplasm of breast; Z80.0 Family history of malignant neoplasm of digestive organs; Z79.82 Long term (current) use of aspirin; Z79.02 Long term (current) use of antithrombotics/antiplatelets; Z79.899 Other long term (current) drug therapy; Z85.51 Personal history of malignant neoplasm of bladder
CPT/HCPCS: 36415; 70450; 70496; 70498; 70553; 71045; 74176; 80048; 80053; 80061; 80202; 81001; 82962; 83605; 83615; 83690; 85025; 85610; 85730; 86301; 87040; 92507; 92610; 93005; 93306; 93312; 93971; 97110; 97116; 97163; 97530; 99152; G0378; J1885; J2250; J2405; J2470; J3490